=== PATIENT | male | born 1955 | race Two or more races ===

== ENCOUNTER 2020-02-15 07:20 | Inpatient (IN) | payer MEDICARE, OTHER ==
[~2020-02-15] VITALS: Ht 172.7 cm; Wt 87.5 kg
[2020-02-15 10:06] VITALS: BP 111/52
[2020-02-15 12:00] VITALS: BP 103/60
[2020-02-15] MEDS: D5 1/2NS w/KCl 20mEq 1,000 ML IV SCH (12:45)
--- NOTE | 2020-02-15 13:47 | Cardiology Report ---
APPROVED REPORT EXAM: Two-dimensional and M-mode echocardiogram with Doppler and color Doppler. INDICATION Syncope M-Mode DIMENSIONS IVSd0.8 (0.7-1.1cm)Left Atrium (MM)3.4 (1.6-4.0cm) LVDd4.1 (3.5-5.6cm)Aortic Root2.9 (2.0-3.7cm) PWd0.8 (0.7-1.1cm)Aortic Cusp Exc.1.9 (1.5-2.0cm) IVSs1.4 cmEPSS0.5 (>1.0cm) LVDs2.4 (2.5-4.0cm) PWs1.2 cm <Conclusion> Normal left ventricular chamber size, systolic function and wall motion. Left ventricular ejection fraction estimated to be 65 %. Anterior Echo-free space, may be due to pericardial fat or effusion. All other cardiac chamber sizes are within normal limits. Focal aortic valve sclerosis with adequate cusp excursion. Thickened mitral valve leaflets with normal excursion. Mitral annulus and aortic root calcification. Pulmonic valve not well visualized. Normal tricuspid valve structure. IVC are not obtainable. A color flow and spectral Doppler study was performed and revealed: No aortic regurgitation. Trace mitral regurgitation. Mitral diastolic velocities suggest reduced left ventricular relaxation c/w mild diastolic dysfunction (Grade I). Trace tricuspid regurgitation. Tricuspid systolic velocities suggests peak right ventricular systolic pressure of 16 mmHg.
[2020-02-15] MEDS: Tylenol #3 tab (300mg/30mg) ORAL PRN ×2 (14:03→22:48)
--- NOTE | 2020-02-15 15:59 | History & Physical ---
History and Physical History & Physicial Dictated for Int Med-Dr Diaz no. [id number] Antoine Powell MD Feb 15, 2020 15:59
[2020-02-15 16:00] VITALS: BP 100/54
--- NOTE | 2020-02-15 17:30 | History and Physical Report ---
DATE OF ADMISSION: 02/15/2020 CHIEF COMPLAINT: The patient is a 64-year-old male, who presents with a chief complaint of syncopal episode. HISTORY OF PRESENT ILLNESS: The patient apparently was in his usual state of health. The patient states he has had a cough for a couple of days. The patient apparently got up this morning to go to the restroom. The patient states "I passed out." The patient initially presented to [facility]. A COVID-19 tests with positive. The patient is transferred to [facility] for insurance purposes. The patient is admitted with syncopal episode and COVID-19 positive. REVIEW OF SYSTEMS: CONSTITUTIONAL: The patient denies weight loss or weight gain. The patient denies fevers or chills. HEENT: The patient denies ear or throat pain. The patient denies headache. CARDIOVASCULAR: The patient denies palpitations or chest pain. CHEST: The patient complains of nonproductive cough for 2 days. The patient denies wheezes or shortness of breath. ABDOMINAL: The patient denies nausea, vomiting, diarrhea, or constipation. GENITOURINARY: The patient denies dysuria or increased frequency of urination. NEUROMUSCULAR: The patient denies seizures or generalized weakness. PAST MEDICAL HISTORY: Significant for hypertension. PAST SURGICAL HISTORY: The patient denies. CURRENT MEDICATIONS: Unknown antihypertensive medication. ALLERGIES: No known drug allergies. SOCIAL HISTORY: The patient is single. The patient denies tobacco or alcohol use. PHYSICAL EXAMINATION: VITAL SIGNS: Temperature 97.8, respirations 18, pulse 75, blood pressure hypotensive at 74/48, pulse ox 98% on room air. GENERAL: The patient is a well-developed, well-nourished male, in no apparent distress. HEENT: Eyes, pupils are equal and responsive to light and accommodation. Extraocular movements are intact. NECK: Supple without lymphadenopathy. CHEST: Lungs are clear to auscultation bilaterally without wheezes or rales. CARDIOVASCULAR: Regular rate. S1, S2 are normal without murmurs, rubs, or gallops. ABDOMEN: Soft, nontender, and nondistended. Positive bowel sounds. No evidence of hepatosplenomegaly. Currently no rebound or guarding. EXTREMITIES: Negative for clubbing, cyanosis, or edema. RECTAL/GENITALIA: Not performed. NEUROLOGIC: Cranial nerves II through XII are grossly intact without focal deficits. Motor strength is 5/5 bilaterally. Deep tendon reflexes are 2+, plantar. LABORATORY STUDIES: WBC 8.1, hemoglobin 13.1, hematocrit 40.6, platelets 175,000. Sodium 137, potassium 3.8, chloride 106, CO2 24, creatinine 1.22, BUN 10, creatinine 1.22, glucose 145. Chest x-ray was reported as no consolidation or infiltrates. COVID-19 test was reported as positive. ASSESSMENT: This is a 64-year-old male with: 1. Syncopal episode. 2. COVID-19 positive. 3. Hypertension. TREATMENT: 1. Syncopal episode. This may be secondary to hypotension upon arrival. The patient's blood pressure has normalized. Hypotension may be secondary to sepsis versus COVID-19 pneumonia. 2. COVID-19 positive. An infectious disease consultation has been obtained with Dr. Faith. The patient has been placed on intravenous Decadron. A pulmonary consultation has been obtained with Dr. Kavin Escobedo. 3. Hypertension. The patient is currently hypotensive. Antoine Powell M.D. DR: ISAEL JOB#: [id number] CC:
--- NOTE | 2020-02-15 17:58 | Consultation ---
History of Present Illness General Date patient seen: Feb 15, 2020 Present Illness HPI 64 y/o M with hx of HTN presented to ED on 02/15/20 with syncopal episode and couple day of cough. Patient initially seen at [facility] and tested positive for COVID19. Denied f/c, ANGUIANO, n/v/d, SOB. Allergies: Coded Allergies: No Known Allergies (Unverified , 02/15/20) Patient History Healthcare decision maker Resuscitation status Advanced Directive on File Patient History Narrative Pmhx: as above Shx: The patient is single. The patient denies tobacco or alcohol use. Fhmx: non contributory Review of Systems All Other Systems: negative except mentioned in HPI Physical Exam Physical Exam Narrative GENERAL: The patient is a well-developed, well-nourished male, in no apparent distress. HEENT: Eyes, pupils are equal and responsive to light and accommodation. Extraocular movements are intact. NECK: Supple without lymphadenopathy. CHEST: Lungs are clear to auscultation bilaterally without wheezes or rales. CARDIOVASCULAR: Regular rate. S1, S2 are normal without murmurs, rubs, or gallops. ABDOMEN: Soft, nontender, and nondistended. Positive bowel sounds. No evidence of hepatosplenomegaly. Currently no rebound or guarding. EXTREMITIES: Negative for clubbing, cyanosis, or edema. Last 24 Hour Vital Signs Date Time Temp Pulse Resp B/P (MAP) Pulse Ox O2 Delivery O2 Flow Rate FiO2 02/15/20 16:00 98.6 75 20 100/54 (69) 98 02/15/20 12:00 87 02/15/20 12:00 97.5 70 20 103/60 (74) 99 02/15/20 10:43 74 89 101 02/15/20 10:06 Nasal Cannula 2.0 02/15/20 10:06 97.5 70 18 111/52 (71) 95 Height (Feet): 5 Height (Inches): 8.00 Weight (Pounds): 193 Medications Current Medications Medications (Trade) Dose Ordered Sig/Jazzmine Route PRN Reason Start Time Stop Time Status Last Admin Dose Admin Acetaminophen (Tylenol) 650 mg Q6H PRN ORAL Mild Pain (Pain Scale 1-3) 02/15/20 11:15 03/16/20 11:14 Acetaminophen (Tylenol) 650 mg Q6H PRN ORAL Temp >100.5 02/15/20 11:15 03/16/20 11:14 Acetaminophen/ Codeine Phosphate (Tylenol #3) 1 tab Q6H PRN ORAL Pain Scale (6-10) 02/15/20 11:15 02/22/20 11:14 02/15/20 14:03 Aspirin (ASA) 81 mg DAILY NG 02/16/20 09:00 04/01/20 08:59 Atorvastatin Calcium (Lipitor) 10 mg BEDTIME ORAL 02/15/20 21:00 05/15/20 20:59 Dextrose/ Electrolytes 1,000 ml @ 75 mls/hr [id number] IV 02/15/20 12:45 02/16/20 12:44 02/15/20 12:45 Enoxaparin Sodium (Lovenox) 40 mg DAILY SUBQ 02/16/20 09:00 05/16/20 08:59 Ondansetron HCl (Zofran) 4 mg Q6H PRN IVP Nausea & Vomiting 02/15/20 11:15 03/16/20 11:14 Assessment/Plan Assessment/Plan: Abx: None Assessment: COVID19 +- at [facility]- currently at -02/14 COVID PCR + (at [facility]) Influenza PCR neg CXR: no infiltrates Afebrile No leukocytosis (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 Will continue to follow along with you. Discussed with NAKITA. Raquel Medina M.D. Feb 15, 2020 17:58
[2020-02-15 20:00] VITALS: BP 117/59
[2020-02-16] VITALS (7 sets, daily range): BP systolic 108–146; BP diastolic 54–77
[2020-02-16] MEDS: D5 1/2NS w/KCl 20mEq 1,000 ML IV SCH (02:51)
[2020-02-16 07:44] LABS: BASOPHILS % (AUTO) 0.6 % (0.0-2.0); EOSINOPHILS % (AUTO) 0.3 % (0.0-3.0); HEMATOCRIT 37.5 % (42.0-52.0); HEMOGLOBIN 13.1 G/DL (14.2-18.0); LYMPHOCYTES % (AUTO) 33.8 % (20.0-45.0); MEAN CORPUSCULAR VOLUME 90 FL (80-99); NEUTROPHILS % (AUTO) 54.4 % (45.0-75.0); PLATELET COUNT 151 K/UL (150-450); RED BLOOD COUNT 4.17 M/UL (4.70-6.10); RED CELL DISTRIBUTION WIDTH 13.7 % (11.6-14.8); WHITE BLOOD COUNT 6.2 K/UL (4.8-10.8)
[2020-02-16 08:25] LABS: ALANINE AMINOTRANSFERASE 32 U/L (12-78); ALBUMIN 3.1 G/DL (3.4-5.0); ALBUMIN/GLOBULIN RATIO 0.9 (1.0-2.7); ALKALINE PHOSPHATASE 67 U/L (46-116); ANION GAP 4 mmol/L (5-15); ASPARTATE AMINO TRANSFERASE 28 U/L (15-37); BILIRUBIN,TOTAL 0.5 MG/DL (0.2-1.0); BLOOD UREA NITROGEN 12 mg/dL (7-18); CALCIUM 7.9 MG/DL (8.5-10.1); CARBON DIOXIDE 28 MMOL/L (21-32); CHLORIDE 104 MMOL/L (98-107); CREATININE 0.9 MG/DL (0.55-1.30); PHOSPHORUS 2.8 MG/DL (2.5-4.9); POTASSIUM 3.6 MMOL/L (3.5-5.1); SODIUM 136 MMOL/L (136-145)
[2020-02-16] MEDS: Aspirin Baby 81mg NG SCH (08:36)
[2020-02-16] MEDS: Enoxaparin 40mg Inj SUBQ SCH (08:38)
[2020-02-16] MEDS ORDERED: Albuterol 90mcg Inhaler 8gm INH PRN (11:00)
--- NOTE | 2020-02-16 11:00 | Consultation ---
History of Present Illness General Date patient seen: Feb 16, 2020 Time patient seen: 09:00 Chief Complaint: SOB, + COVID Referring physician: Dr Diaz Reason for Consultation: COVID 19 infection, SOB Present Illness HPI 64 years old male with PMH of HTN, passed out in the bathroom patient. Patient initially presented to [facility] ED . Covid 19 was positive . Chest x-ray revealed no acute cardiopulmonary pathology Patient subsequently was transferred to [facility] for further management. Laboratory work-up revealed no leukocytosis, stable hemoglobin and hematocrit. Troponin negative. Stable electrolytes and renal parameters Patient admitted for syncopal episode , COVID-19 infection. Pulmonary consult was requested to assist in management of this patient. This morning he denies shortness of breath. Pulse oximetry stable on room air. No chest pain, no palpitation, no blackouts. Allergies: Coded Allergies: No Known Allergies (Unverified , 02/15/20) Patient History Healthcare decision maker Resuscitation status full code Advanced Directive on File Past Medical/Surgical History Past Medical/Surgical History: (1) HTN (hypertension) Review of Systems Constitutional: Reports: weakness Eye: Reports: no symptoms ENT: Reports: no symptoms Respiratory: Reports: no symptoms Cardiovascular: Reports: no symptoms Gastrointestinal: Reports: no symptoms Genitourinary: Reports: no symptoms Musculoskeletal: Reports: no symptoms Skin: Reports: no symptoms Psychiatric: Reports: no symptoms Neurological: Reports: see HPI Endocrine: Reports: no symptoms Physical Exam General Appearance: WD/WN - obese, alert Lines, tubes and drains: peripheral HEENT: normocephalic, anicteric, mucous membranes moist, PERRL Neck: supple Respiratory/Chest: chest wall non-tender, lungs clear, no respiratory distress, no accessory muscle use Cardiovascular/Chest: normal rate, regular rhythm Abdomen: normal bowel sounds, non tender, soft - obese Extremities: normal range of motion, non-tender, no calf tenderness, normal capillary refill Skin Exam: warm/dry, no diaphoresis 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6 75 20 100/54 (69) 98 02/15/20 12:00 87 02/15/20 12:00 97.5 70 20 103/60 (74) 99 Intake and Output 02/15/20 02/16/20 19:00 07:00 Intake Total 635 ml 675 ml Output Total 450 ml 1500 ml Balance 185 ml -825 ml Intake Oral 560 ml IV Total 75 ml 675 ml Output Urine Total 450 ml 1500 ml # Voids 1 Laboratory Tests Test 02/16/20 03:40 White Blood Count 6.2 K/UL (4.8-10.8) Red Blood Count 4.17 M/UL (4.70-6.10) L Hemoglobin 13.1 G/DL (14.2-18.0) L Hematocrit 37.5 % (42.0-52.0) L Mean Corpuscular Volume 90 FL (80-99) Mean Corpuscular Hemoglobin 31.5 PG (27.0-31.0) H Mean Corpuscular Hemoglobin Concent 35.0 G/DL (32.0-36.0) Red Cell Distribution Width 13.7 % (11.6-14.8) Platelet Count 151 K/UL (150-450) Mean Platelet Volume 7.2 FL (6.5-10.1) Neutrophils (%) (Auto) 54.4 % (45.0-75.0) Lymphocytes (%) (Auto) 33.8 % (20.0-45.0) Monocytes (%) (Auto) 11.0 % (1.0-10.0) H Eosinophils (%) (Auto) 0.3 % (0.0-3.0) Basophils (%) (Auto) 0.6 % (0.0-2.0) Sodium Level 136 MMOL/L (136-145) Potassium Level 3.6 MMOL/L (3.5-5.1) Chloride Level 104 MMOL/L (98-107) Carbon Dioxide Level 28 MMOL/L (21-32) Anion Gap 4 mmol/L (5-15) L Blood Urea Nitrogen 12 mg/dL (7-18) Creatinine 0.9 MG/DL (0.55-1.30) Estimat Glomerular Filtration Rate > 60 mL/min (>60) Glucose Level 100 MG/DL (74-106) Calcium Level 7.9 MG/DL (8.5-10.1) L Phosphorus Level 2.8 MG/DL (2.5-4.9) Magnesium Level 1.9 MG/DL (1.8-2.4) Total Bilirubin 0.5 MG/DL (0.2-1.0) Aspartate Amino Transf (AST/SGOT) 28 U/L (15-37) Alanine Aminotransferase (ALT/SGPT) 32 U/L (12-78) Alkaline Phosphatase 67 U/L (46-116) Troponin I 0.006 ng/mL (0.000-0.056) Total Protein 6.4 G/DL (6.4-8.2) Albumin 3.1 G/DL (3.4-5.0) L Globulin 3.3 g/dL Albumin/Globulin Ratio 0.9 (1.0-2.7) L Height (Feet): 5 Height (Inches): 8.00 Weight (Pounds): 193 Medications Current Medications Medications (Trade) Dose Ordered Sig/Jazzmine Route PRN Reason Start Time Stop Time Status Last Admin Dose Admin Acetaminophen (Tylenol) 650 mg Q6H PRN ORAL Temp >100.5 02/15/20 11:15 03/16/20 11:14 02/16/20 08:37 Acetaminophen (Tylenol) 650 mg Q6H PRN ORAL Mild Pain (Pain Scale 1-3) 02/15/20 11:15 03/16/20 11:14 Acetaminophen/ Codeine Phosphate (Tylenol #3) 1 tab Q6H PRN ORAL Pain Scale (6-10) 02/15/20 11:15 02/22/20 11:14 02/15/20 22:48 Aspirin (ASA) 81 mg DAILY NG 02/16/20 09:00 04/01/20 08:59 02/16/20 08:36 Atorvastatin Calcium (Lipitor) 10 mg BEDTIME ORAL 02/15/20 21:00 05/15/20 20:59 02/15/20 21:57 Dextrose/ Electrolytes 1,000 ml @ 75 mls/hr [id number] IV 02/15/20 12:45 02/16/20 12:44 02/16/20 02:51 Enoxaparin Sodium (Lovenox) 40 mg DAILY SUBQ 02/16/20 09:00 05/16/20 08:59 02/16/20 08:38 Ondansetron HCl (Zofran) 4 mg Q6H PRN IVP Nausea & Vomiting 02/15/20 11:15 03/16/20 11:14 Assessment/Plan Assessment/Plan: ASSESSMENT COVUD 19 infection Syncope HTN Obesity PLAN OF CARE tele isolation IVF, BP stable CXR clear , pulse ox stable on RA hold off on steroids and abx O2 prn titrate to keep sat > 92% Albuterol MDI prn a/c with Lovenox/ prophylactic dose fup with CXR fup with inflammatory markers in am to access risk of cytokine storm add vit C and Zinc ECHO with pEF Carotid pending continue IVF for now , closely monitor BP- stable orthostatic VS q shift supportive care continue case discussed and evaluated by supervising physician Idalia Jeong NP Feb 16, 2020 11:00
--- NOTE | 2020-02-16 11:10 | Diagnostic Imaging Report ---
EXAM: XR Chest, 1 View CLINICAL HISTORY: COUGH TECHNIQUE: Frontal view of the chest. COMPARISON: No relevant prior studies available. FINDINGS: Lungs: Mildly increased interstitial markings. The lungs are otherwise clear without focal consolidation. Pleural space: Unremarkable. The costophrenic angles are sharp. No visible pneumothorax. Heart: Unremarkable. No cardiomegaly. Mediastinum: Unremarkable. Bones/joints: Unremarkable. IMPRESSION: Mildly increased interstitial markings. This is nonspecific and may represent a mild bronchitis or pneumonitis. No focal consolidation.
[2020-02-16] MEDS: Tylenol #3 tab (300mg/30mg) ORAL PRN ×2 (11:34→20:45)
--- NOTE | 2020-02-16 13:19 | Internal Med Progress Note ---
Subjective Date of Service: Feb 16, 2020 Physician Name Antoine Powell Attending Physician Mckay Diaz MD Current Medications Medications (Trade) Dose Ordered Sig/Jazzmine Route PRN Reason Start Time Stop Time Status Last Admin Dose Admin Acetaminophen (Tylenol) 650 mg Q6H PRN ORAL Temp >100.5 02/15/20 11:15 03/16/20 11:14 02/16/20 08:37 Acetaminophen (Tylenol) 650 mg Q6H PRN ORAL Mild Pain (Pain Scale 1-3) 02/15/20 11:15 03/16/20 11:14 Acetaminophen/ Codeine Phosphate (Tylenol #3) 1 tab Q6H PRN ORAL Pain Scale (6-10) 02/15/20 11:15 02/22/20 11:14 02/16/20 11:34 Albuterol Sulfate (Proventil MDI) 2 puff Q4H PRN INH Shortness of Breath 02/16/20 11:00 05/16/20 10:59 Ascorbic Acid (Vitamin C) 500 mg TWICE A DAY ORAL 02/16/20 18:00 03/17/20 17:59 Aspirin (ASA) 81 mg DAILY NG 02/16/20 09:00 04/01/20 08:59 02/16/20 08:36 Atorvastatin Calcium (Lipitor) 10 mg BEDTIME ORAL 02/15/20 21:00 05/15/20 20:59 02/15/20 21:57 Enoxaparin Sodium (Lovenox) 40 mg DAILY SUBQ 02/16/20 09:00 05/16/20 08:59 02/16/20 08:38 Ondansetron HCl (Zofran) 4 mg Q6H PRN IVP Nausea & Vomiting 02/15/20 11:15 03/16/20 11:14 Zinc Sulfate (Zinc Sulfate) 220 mg DAILY ORAL 02/17/20 09:00 05/17/20 08:59 Allergies: Coded Allergies: No Known Allergies (Unverified , 02/15/20) ROS Limited/Unobtainable: No Constitutional: Reports: no symptoms HEENT: Reports: no symptoms Cardiovascular: Reports: no symptoms Respiratory: Reports: cough, SOB with excertion Gastrointestinal/Abdominal: Reports: no symptoms Genitourinary: Reports: no symptoms Neurologic/Psychiatric: Reports: no symptoms Subjective 64 YO M admitted with syncope. Now respiratory failure and COVID 19 pneumonia. Cover for Int Cas - Dr Diaz Objective Last Vital Signs Date Time Temp Pulse Resp B/P (MAP) Pulse Ox O2 Delivery O2 Flow Rate FiO2 02/16/20 12:00 69 02/16/20 12:00 99.0 20 108/68 (81) 99 02/16/20 09:00 Room Air 02/15/20 10:06 2.0 Laboratory Tests Test 02/16/20 03:40 White Blood Count 6.2 K/UL (4.8-10.8) Red Blood Count 4.17 M/UL (4.70-6.10) L Hemoglobin 13.1 G/DL (14.2-18.0) L Hematocrit 37.5 % (42.0-52.0) L Mean Corpuscular Volume 90 FL (80-99) Mean Corpuscular Hemoglobin 31.5 PG (27.0-31.0) H Mean Corpuscular Hemoglobin Concent 35.0 G/DL (32.0-36.0) Red Cell Distribution Width 13.7 % (11.6-14.8) Platelet Count 151 K/UL (150-450) Mean Platelet Volume 7.2 FL (6.5-10.1) Neutrophils (%) (Auto) 54.4 % (45.0-75.0) Lymphocytes (%) (Auto) 33.8 % (20.0-45.0) Monocytes (%) (Auto) 11.0 % (1.0-10.0) H Eosinophils (%) (Auto) 0.3 % (0.0-3.0) Basophils (%) (Auto) 0.6 % (0.0-2.0) Sodium Level 136 MMOL/L (136-145) Potassium Level 3.6 MMOL/L (3.5-5.1) Chloride Level 104 MMOL/L (98-107) Carbon Dioxide Level 28 MMOL/L (21-32) Anion Gap 4 mmol/L (5-15) L Blood Urea Nitrogen 12 mg/dL (7-18) Creatinine 0.9 MG/DL (0.55-1.30) Estimat Glomerular Filtration Rate > 60 mL/min (>60) Glucose Level 100 MG/DL (74-106) Calcium Level 7.9 MG/DL (8.5-10.1) L Phosphorus Level 2.8 MG/DL (2.5-4.9) Magnesium Level 1.9 MG/DL (1.8-2.4) Total Bilirubin 0.5 MG/DL (0.2-1.0) Aspartate Amino Transf (AST/SGOT) 28 U/L (15-37) Alanine Aminotransferase (ALT/SGPT) 32 U/L (12-78) Alkaline Phosphatase 67 U/L (46-116) Troponin I 0.006 ng/mL (0.000-0.056) Total Protein 6.4 G/DL (6.4-8.2) Albumin 3.1 G/DL (3.4-5.0) L Globulin 3.3 g/dL Albumin/Globulin Ratio 0.9 (1.0-2.7) L Intake and Output 02/15/20 02/16/20 19:00 07:00 Intake Total 635 ml 675 ml Output Total 450 ml 1500 ml Balance 185 ml -825 ml Intake Oral 560 ml IV Total 75 ml 675 ml Output Urine Total 450 ml 1500 ml # Voids 1 Objective PHYSICAL EXAMINATION: GENERAL: The patient is a well-developed, well-nourished male, in no apparent distress. HEENT: Eyes, pupils are equal and responsive to light and accommodation. Extraocular movements are intact. NECK: Supple without lymphadenopathy. CHEST: Lungs are clear to auscultation bilaterally without wheezes or rales. CARDIOVASCULAR: Regular rate. S1, S2 are normal without murmurs, rubs, or gallops. ABDOMEN: Soft, nontender, and nondistended. Positive bowel sounds. No evidence of hepatosplenomegaly. Currently no rebound or guarding. EXTREMITIES: Negative for clubbing, cyanosis, or edema. RECTAL/GENITALIA: Not performed. NEUROLOGIC: Cranial nerves II through XII are grossly intact without focal deficits. Motor strength is 5/5 bilaterally. Deep tendon reflexes are 2+ bilat Assessment/Plan Assessment/Plan ASSESSMENT: This is a 64-year-old male with: 1. Syncopal episode. 2. COVID-19 positive. 3. Hypertension. TREATMENT: 1. Syncopal episode. This may be secondary to hypotension upon arrival. The patient's blood pressure has normalized. Hypotension may be secondary to sepsis versus COVID-19 pneumonia. 2. COVID-19 positive. An infectious disease consultation has been obtained with Dr. Faith. The patient has been placed on intravenous Decadron. A pulmonary consultation has been obtained with Dr. Kavin Escobedo. 3. Hypertension. The patient is currently hypotensive. Antoine Powell MD Feb 16, 2020 13:19
[2020-02-16] MEDS: guaiFENesin 100mg/5ml Liq ud ORAL PRN ×2 (16:01→22:07)
[2020-02-16] MEDS: Ascorbic Acid 500mg tab ORAL SCH (17:52)
[2020-02-17] VITALS (7 sets, daily range): BP systolic 114–130; BP diastolic 64–79
[2020-02-17 07:37] LABS: BASOPHILS % (AUTO) 0.3 % (0.0-2.0); EOSINOPHILS % (AUTO) 0.1 % (0.0-3.0); HEMATOCRIT 41.2 % (42.0-52.0); HEMOGLOBIN 14.2 G/DL (14.2-18.0); LYMPHOCYTES % (AUTO) 24.1 % (20.0-45.0); MEAN CORPUSCULAR VOLUME 89 FL (80-99); MONOCYTES % (AUTO) 7.7 % (1.0-10.0); NEUTROPHILS % (AUTO) 67.8 % (45.0-75.0); PLATELET COUNT 163 K/UL (150-450); RED BLOOD COUNT 4.63 M/UL (4.70-6.10); RED CELL DISTRIBUTION WIDTH 13.1 % (11.6-14.8); WHITE BLOOD COUNT 8.1 K/UL (4.8-10.8)
[2020-02-17 07:58] LABS: ANION GAP 7 mmol/L (5-15); BLOOD UREA NITROGEN 13 mg/dL (7-18); CALCIUM 8.5 MG/DL (8.5-10.1); CARBON DIOXIDE 28 MMOL/L (21-32); CHLORIDE 99 MMOL/L (98-107); CREATININE 0.9 MG/DL (0.55-1.30); FERRITIN 215 NG/ML (8-388); LACTATE DEHYDROGENASE 220 U/L (81-234); POTASSIUM 3.6 MMOL/L (3.5-5.1); SODIUM 134 MMOL/L (136-145)
--- NOTE | 2020-02-17 08:26 | Consultation ---
History of Present Illness General Date patient seen: Feb 17, 2020 Time patient seen: 12:42 Chief Complaint: Syncope Referring physician: Dr Diaz Reason for Consultation: COVID 19 infection, SOB Present Illness HPI 64yo M who p/w syncopal episode. Pt reports cough for a couple of days, then in the morning got out of bed to use restroom and passed out, prompting presentation to [facility] ER. COVID testing there was positive, transferred to [facility] for insurance reasons. ID c/s given COVID+. Pt has had mild fever to 100.5 in house, normal WBC and is stable on RA. Reports lightheadedness when gets up, but otherwise doing well. Breathing stable. No allergies to abx. Allergies: Coded Allergies: No Known Allergies (Unverified , 02/15/20) Patient History Healthcare decision maker Resuscitation status Advanced Directive on File Review of Systems ROS Narrative 10-point ROS neg except as noted in HPI Physical Exam Physical Exam Narrative Gen: NAD HEENT: NCAT Pulm: BL chest rise Abd: Non-distended Ext: No c/c/e Skin: No visible rashes Neuro: Awake Last 24 Hour Vital Signs Date Time Temp Pulse Resp B/P (MAP) Pulse Ox O2 Delivery O2 Flow Rate FiO2 02/17/20 06:00 97.9 93 18 130/73 (92) 95 02/17/20 04:00 93 91 74 02/17/20 04:00 90 02/17/20 04:00 97.9 93 18 130/73 (92) 95 02/17/20 00:00 82 02/17/20 00:00 97.9 90 18 123/73 (90) 95 02/16/20 21:15 99.1 02/16/20 21:00 Room Air 02/16/20 20:00 88 02/16/20 20:00 99.0 85 20 146/77 (100) 96 02/16/20 16:00 73 02/16/20 16:00 99.1 85 20 114/67 (83) 99 02/16/20 12:00 69 02/16/20 12:00 99.0 71 20 108/68 (81) 99 02/16/20 10:45 71 79 92 02/16/20 09:07 99.5 02/16/20 09:00 Room Air Intake and Output 02/16/20 02/17/20 18:59 06:59 Intake Total 820 ml 400 ml Output Total 1500 ml 400 ml Balance -680 ml 0 ml Intake Oral 820 ml 400 ml Output Urine Total 1500 ml 400 ml # Voids 1 Laboratory Tests Test 02/17/20 04:45 White Blood Count 8.1 K/UL (4.8-10.8) Red Blood Count 4.63 M/UL (4.70-6.10) L Hemoglobin 14.2 G/DL (14.2-18.0) Hematocrit 41.2 % (42.0-52.0) L Mean Corpuscular Volume 89 FL (80-99) Mean Corpuscular Hemoglobin 30.7 PG (27.0-31.0) Mean Corpuscular Hemoglobin Concent 34.5 G/DL (32.0-36.0) Red Cell Distribution Width 13.1 % (11.6-14.8) Platelet Count 163 K/UL (150-450) Mean Platelet Volume 6.9 FL (6.5-10.1) Neutrophils (%) (Auto) 67.8 % (45.0-75.0) Lymphocytes (%) (Auto) 24.1 % (20.0-45.0) Monocytes (%) (Auto) 7.7 % (1.0-10.0) Eosinophils (%) (Auto) 0.1 % (0.0-3.0) Basophils (%) (Auto) 0.3 % (0.0-2.0) D-Dimer 0.68 mg/L FEU (0.00-0.49) H Sodium Level 134 MMOL/L (136-145) L Potassium Level 3.6 MMOL/L (3.5-5.1) Chloride Level 99 MMOL/L (98-107) Carbon Dioxide Level 28 MMOL/L (21-32) Anion Gap 7 mmol/L (5-15) Blood Urea Nitrogen 13 mg/dL (7-18) Creatinine 0.9 MG/DL (0.55-1.30) Estimat Glomerular Filtration Rate > 60 mL/min (>60) Glucose Level 105 MG/DL (74-106) Calcium Level 8.5 MG/DL (8.5-10.1) Ferritin 215 NG/ML (8-388) Lactate Dehydrogenase 220 U/L (81-234) C-Reactive Protein, Quantitative 1.8 mg/dL (0.00-0.90) H Height (Feet): 5 Height (Inches): 8.00 Weight (Pounds): 193 Medications Current Medications Medications (Trade) Dose Ordered Sig/Jazzmine Route PRN Reason Start Time Stop Time Status Last Admin Dose Admin Acetaminophen (Tylenol) 650 mg Q6H PRN ORAL Temp >100.5 02/15/20 11:15 03/16/20 11:14 02/16/20 08:37 Acetaminophen (Tylenol) 650 mg Q6H PRN ORAL Mild Pain (Pain Scale 1-3) 02/15/20 11:15 03/16/20 11:14 Acetaminophen/ Codeine Phosphate (Tylenol #3) 1 tab Q6H PRN ORAL Pain Scale (6-10) 02/15/20 11:15 02/22/20 11:14 02/16/20 20:45 Albuterol Sulfate (Proventil MDI) 2 puff Q4H PRN INH Shortness of Breath 02/16/20 11:00 05/16/20 10:59 Ascorbic Acid (Vitamin C) 500 mg TWICE A DAY ORAL 02/16/20 18:00 03/17/20 17:59 02/16/20 17:52 Aspirin (ASA) 81 mg DAILY NG 02/16/20 09:00 04/01/20 08:59 02/16/20 08:36 Atorvastatin Calcium (Lipitor) 10 mg BEDTIME ORAL 02/15/20 21:00 05/15/20 20:59 02/16/20 20:44 Enoxaparin Sodium (Lovenox) 40 mg DAILY SUBQ 02/16/20 09:00 05/16/20 08:59 02/16/20 08:38 Guaifenesin (Robitussin) 100 mg Q6H PRN ORAL For Cough 02/16/20 16:00 05/16/20 15:59 02/16/20 22:07 Ondansetron HCl (Zofran) 4 mg Q6H PRN IVP Nausea & Vomiting 02/15/20 11:15 03/16/20 11:14 Zinc Sulfate (Zinc Sulfate) 220 mg DAILY ORAL 02/17/20 09:00 05/17/20 08:59 Assessment/Plan Assessment/Plan: 64yo M with: Fever to 100.5 Normal WBC COVID+ Doing well on RA Syncopal episode 02/14 CTH at OSH: Neg for acute process 02/15 CXR: Mildly increased interstitial markings. This is nonspecific and may represent a mild bronchitis or pneumonitis. No focal consolidation. Plan: Cont to monitor off abx, off antivirals and off steroids given pt w/ COVID but relatively asymptomatic from resp standpoint, doing well on RA Check ambulatory sat, if >94% w/ ambulation, then OK to d/c home to home isolation from ID standpoint Trend resp status closely Monitor CBC/CMP Monitor temp curve, hemodynamics Monitor resp status D/w RN Thank you for this consult. [facility] will continue to follow. Shraddha Foley M.D. Feb 17, 2020 08:26
[2020-02-17] MEDS: Enoxaparin 40mg Inj SUBQ SCH (09:00)
[2020-02-17] MEDS: Ascorbic Acid 500mg tab ORAL SCH ×2 (09:00→17:53)
[2020-02-17] MEDS: Zinc Sulfate 220mg ORAL SCH (09:00)
[2020-02-17] MEDS: Aspirin Baby 81mg NG SCH (09:00)
--- NOTE | 2020-02-17 09:08 | Pulmonology Progress Note ---
Subjective ROS Limited/Unobtainable: No Constitutional: Reports: no symptoms HEENT: Repors: no symptoms Respiratory: Reports: no symptoms Allergies: Coded Allergies: No Known Allergies (Unverified , 02/15/20) Objective Last 24 Hour Vital Signs Date Time Temp Pulse Resp B/P (MAP) Pulse Ox O2 Delivery O2 Flow Rate FiO2 02/17/20 06:00 97.9 93 18 130/73 (92) 95 02/17/20 04:00 93 91 74 02/17/20 04:00 90 02/17/20 04:00 97.9 93 18 130/73 (92) 95 02/17/20 00:00 82 02/17/20 00:00 97.9 90 18 123/73 (90) 95 02/16/20 21:15 99.1 02/16/20 21:00 Room Air 02/16/20 20:00 88 02/16/20 20:00 99.0 85 20 146/77 (100) 96 02/16/20 16:00 73 02/16/20 16:00 99.1 85 20 114/67 (83) 99 02/16/20 12:00 69 02/16/20 12:00 99.0 71 20 108/68 (81) 99 02/16/20 10:45 71 79 92 02/16/20 09:07 99.5 Intake and Output 02/16/20 02/17/20 19:00 07:00 Intake Total 820 ml 400 ml Output Total 1500 ml 400 ml Balance -680 ml 0 ml Intake Oral 820 ml 400 ml Output Urine Total 1500 ml 400 ml # Voids 1 General Appearance: WD/WN HEENT: normocephalic, atraumatic Respiratory: chest wall non-tender, lungs clear Cardiovascular: normal peripheral pulses, normal rate Abdomen: normal bowel sounds, soft, non tender Genitourinary: normal external genitalia 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 Laboratory Tests 02/17/20 04:45: White Blood Count 8.1, Red Blood Count 4.63L, Hemoglobin 14.2, Hematocrit 41.2L, Mean Corpuscular Volume 89, Mean Corpuscular Hemoglobin 30.7, Mean Corpuscular Hemoglobin Concent 34.5, Red Cell Distribution Width 13.1, Platelet Count 163, Mean Platelet Volume 6.9, Neutrophils (%) (Auto) 67.8, Lymphocytes (%) (Auto) 24.1, Monocytes (%) (Auto) 7.7, Eosinophils (%) (Auto) 0.1, Basophils (%) (Auto) 0.3, D-Dimer 0.68H, Sodium Level 134L, Potassium Level 3.6, Chloride Level 99, Carbon Dioxide Level 28, Anion Gap 7, Blood Urea Nitrogen 13, Creatinine 0.9, Estimat Glomerular Filtration Rate > 60, Glucose Level 105, Calcium Level 8.5, Ferritin 215, Lactate Dehydrogenase 220, C-Reactive Protein, Quantitative 1.8H Current Medications Medications (Trade) Dose Ordered Sig/Jazzmine Route PRN Reason Start Time Stop Time Status Last Admin Dose Admin Acetaminophen (Tylenol) 650 mg Q6H PRN ORAL Temp >100.5 02/15/20 11:15 03/16/20 11:14 02/16/20 08:37 Acetaminophen (Tylenol) 650 mg Q6H PRN ORAL Mild Pain (Pain Scale 1-3) 02/15/20 11:15 03/16/20 11:14 Acetaminophen/ Codeine Phosphate (Tylenol #3) 1 tab Q6H PRN ORAL Pain Scale (6-10) 02/15/20 11:15 02/22/20 11:14 02/16/20 20:45 Albuterol Sulfate (Proventil MDI) 2 puff Q4H PRN INH Shortness of Breath 02/16/20 11:00 05/16/20 10:59 Ascorbic Acid (Vitamin C) 500 mg TWICE A DAY ORAL 02/16/20 18:00 03/17/20 17:59 02/16/20 17:52 Aspirin (ASA) 81 mg DAILY NG 02/16/20 09:00 04/01/20 08:59 02/16/20 08:36 Atorvastatin Calcium (Lipitor) 10 mg BEDTIME ORAL 02/15/20 21:00 05/15/20 20:59 02/16/20 20:44 Enoxaparin Sodium (Lovenox) 40 mg DAILY SUBQ 02/16/20 09:00 05/16/20 08:59 02/16/20 08:38 Guaifenesin (Robitussin) 100 mg Q6H PRN ORAL For Cough 02/16/20 16:00 05/16/20 15:59 02/16/20 22:07 Ondansetron HCl (Zofran) 4 mg Q6H PRN IVP Nausea & Vomiting 02/15/20 11:15 03/16/20 11:14 Zinc Sulfate (Zinc Sulfate) 220 mg DAILY ORAL 02/17/20 09:00 05/17/20 08:59 Assessment/Plan Problems: (1) Syncope (2) COVID-19 (3) HTN (hypertension) Assessment/Plan no new complains Echo reviewed: EF is 65% BP controlled repeat CRP, ID evaluation pending Kavin Escobedo MD Feb 17, 2020 09:08
--- NOTE | 2020-02-17 12:52 | Internal Med Progress Note ---
Subjective Date of Service: Feb 17, 2020 Physician Name Antoine Powell Attending Physician Mckay Diaz MD Current Medications Medications (Trade) Dose Ordered Sig/Jazzmine Route PRN Reason Start Time Stop Time Status Last Admin Dose Admin Acetaminophen (Tylenol) 650 mg Q6H PRN ORAL Temp >100.5 02/15/20 11:15 03/16/20 11:14 02/16/20 08:37 Acetaminophen (Tylenol) 650 mg Q6H PRN ORAL Mild Pain (Pain Scale 1-3) 02/15/20 11:15 03/16/20 11:14 02/17/20 09:51 Acetaminophen/ Codeine Phosphate (Tylenol #3) 1 tab Q6H PRN ORAL Pain Scale (6-10) 02/15/20 11:15 02/22/20 11:14 02/16/20 20:45 Albuterol Sulfate (Proventil MDI) 2 puff Q4H PRN INH Shortness of Breath 02/16/20 11:00 05/16/20 10:59 Ascorbic Acid (Vitamin C) 500 mg TWICE A DAY ORAL 02/16/20 18:00 03/17/20 17:59 02/17/20 09:00 Aspirin (ASA) 81 mg DAILY NG 02/16/20 09:00 04/01/20 08:59 02/17/20 09:00 Atorvastatin Calcium (Lipitor) 10 mg BEDTIME ORAL 02/15/20 21:00 05/15/20 20:59 02/16/20 20:44 Enoxaparin Sodium (Lovenox) 40 mg DAILY SUBQ 02/16/20 09:00 05/16/20 08:59 02/17/20 09:00 Guaifenesin (Robitussin) 100 mg Q6H PRN ORAL For Cough 02/16/20 16:00 05/16/20 15:59 02/16/20 22:07 Ondansetron HCl (Zofran) 4 mg Q6H PRN IVP Nausea & Vomiting 02/15/20 11:15 03/16/20 11:14 Zinc Sulfate (Zinc Sulfate) 220 mg DAILY ORAL 02/17/20 09:00 05/17/20 08:59 02/17/20 09:00 Allergies: Coded Allergies: No Known Allergies (Unverified , 02/15/20) ROS Limited/Unobtainable: No Constitutional: Reports: no symptoms HEENT: Reports: no symptoms Cardiovascular: Reports: no symptoms Respiratory: Reports: shortness of breath Gastrointestinal/Abdominal: Reports: no symptoms Genitourinary: Reports: no symptoms Neurologic/Psychiatric: Reports: no symptoms Subjective 64 YO M admitted with syncope. Now respiratory failure and COVID 19 pneumonia. Cover for Int Cas - Dr Diaz Objective Last Vital Signs Date Time Temp Pulse Resp B/P (MAP) Pulse Ox O2 Delivery O2 Flow Rate FiO2 02/17/20 12:00 78 02/17/20 11:54 98.9 16 121/69 (86) 98 02/17/20 09:00 Room Air 02/15/20 10:06 2.0 Laboratory Tests Test 02/17/20 04:45 White Blood Count 8.1 K/UL (4.8-10.8) Red Blood Count 4.63 M/UL (4.70-6.10) L Hemoglobin 14.2 G/DL (14.2-18.0) Hematocrit 41.2 % (42.0-52.0) L Mean Corpuscular Volume 89 FL (80-99) Mean Corpuscular Hemoglobin 30.7 PG (27.0-31.0) Mean Corpuscular Hemoglobin Concent 34.5 G/DL (32.0-36.0) Red Cell Distribution Width 13.1 % (11.6-14.8) Platelet Count 163 K/UL (150-450) Mean Platelet Volume 6.9 FL (6.5-10.1) Neutrophils (%) (Auto) 67.8 % (45.0-75.0) Lymphocytes (%) (Auto) 24.1 % (20.0-45.0) Monocytes (%) (Auto) 7.7 % (1.0-10.0) Eosinophils (%) (Auto) 0.1 % (0.0-3.0) Basophils (%) (Auto) 0.3 % (0.0-2.0) D-Dimer 0.68 mg/L FEU (0.00-0.49) H Sodium Level 134 MMOL/L (136-145) L Potassium Level 3.6 MMOL/L (3.5-5.1) Chloride Level 99 MMOL/L (98-107) Carbon Dioxide Level 28 MMOL/L (21-32) Anion Gap 7 mmol/L (5-15) Blood Urea Nitrogen 13 mg/dL (7-18) Creatinine 0.9 MG/DL (0.55-1.30) Estimat Glomerular Filtration Rate > 60 mL/min (>60) Glucose Level 105 MG/DL (74-106) Calcium Level 8.5 MG/DL (8.5-10.1) Ferritin 215 NG/ML (8-388) Lactate Dehydrogenase 220 U/L (81-234) C-Reactive Protein, Quantitative 1.8 mg/dL (0.00-0.90) H Intake and Output 02/16/20 02/17/20 19:00 07:00 Intake Total 820 ml 400 ml Output Total 1500 ml 400 ml Balance -680 ml 0 ml Intake Oral 820 ml 400 ml Output Urine Total 1500 ml 400 ml # Voids 1 Objective PHYSICAL EXAMINATION: GENERAL: The patient is a well-developed, well-nourished male, in no apparent distress. HEENT: Eyes, pupils are equal and responsive to light and accommodation. Extraocular movements are intact. NECK: Supple without lymphadenopathy. CHEST: Lungs are clear to auscultation bilaterally without wheezes or rales. CARDIOVASCULAR: Regular rate. S1, S2 are normal without murmurs, rubs, or gallops. ABDOMEN: Soft, nontender, and nondistended. Positive bowel sounds. No evidence of hepatosplenomegaly. Currently no rebound or guarding. EXTREMITIES: Negative for clubbing, cyanosis, or edema. RECTAL/GENITALIA: Not performed. NEUROLOGIC: Cranial nerves II through XII are grossly intact without focal deficits. Motor strength is 5/5 bilaterally. Deep tendon reflexes are 2+ bilat Assessment/Plan Assessment/Plan ASSESSMENT: This is a 64-year-old male with: 1. Syncopal episode. 2. COVID-19 positive. 3. Hypertension. TREATMENT: 1. Syncopal episode. This may be secondary to hypotension upon arrival. The patient's blood pressure has normalized. Hypotension may be secondary to sepsis versus COVID-19 pneumonia. 2. COVID-19 positive. An infectious disease consultation has been obtained with Dr. Faith. The patient has been placed on intravenous Decadron. A pulmonary consultation has been obtained with Dr. Kavin Ecsobedo. 3. Hypertension. The patient is currently hypotensive. 4. DVT prophylaxis=Antoine Woods MD Feb 17, 2020 12:52
[2020-02-17] MEDS: Tylenol #3 tab (300mg/30mg) ORAL PRN (17:53)
[2020-02-17] MEDS: guaiFENesin 100mg/5ml Liq ud ORAL PRN (21:57)
[2020-02-18] VITALS: BP 110/74
[2020-02-18 04:00] VITALS: BP 119/76
[2020-02-18 07:28] LABS: BASOPHILS % (AUTO) 0.4 % (0.0-2.0); HEMATOCRIT 44.5 % (42.0-52.0); HEMOGLOBIN 15.3 G/DL (14.2-18.0); LYMPHOCYTES % (AUTO) 27.6 % (20.0-45.0); MEAN CORPUSCULAR VOLUME 89 FL (80-99); MONOCYTES % (AUTO) 7.4 % (1.0-10.0); NEUTROPHILS % (AUTO) 64.5 % (45.0-75.0); PLATELET COUNT 182 K/UL (150-450); RED BLOOD COUNT 4.98 M/UL (4.70-6.10); WHITE BLOOD COUNT 8.2 K/UL (4.8-10.8)
[2020-02-18 07:39] LABS: ALANINE AMINOTRANSFERASE 42 U/L (12-78); ALBUMIN 3.5 G/DL (3.4-5.0); ALBUMIN/GLOBULIN RATIO 0.9 (1.0-2.7); ALKALINE PHOSPHATASE 85 U/L (46-116); ANION GAP 8 mmol/L (5-15); ASPARTATE AMINO TRANSFERASE 33 U/L (15-37); BILIRUBIN,TOTAL 0.6 MG/DL (0.2-1.0); BLOOD UREA NITROGEN 17 mg/dL (7-18); CALCIUM 8.8 MG/DL (8.5-10.1); CARBON DIOXIDE 29 MMOL/L (21-32); CHLORIDE 99 MMOL/L (98-107); CREATININE 1.1 MG/DL (0.55-1.30); PHOSPHORUS 3.6 MG/DL (2.5-4.9); POTASSIUM 3.7 MMOL/L (3.5-5.1); SODIUM 136 MMOL/L (136-145)
[2020-02-18 08:00] VITALS: BP 110/69
--- NOTE | 2020-02-18 08:14 | Infectious Diseases Prog Note ---
Assessment/Plan 64yo M with: Fever to 100.5 Normal WBC COVID+ On RA, satting 92-93% Syncopal episode 02/14 CTH at OSH: Neg for acute process 02/15 CXR: Mildly increased interstitial markings. This is nonspecific and may represent a mild bronchitis or pneumonitis. No focal consolidation. Plan: Cont to monitor off abx, off antivirals and off steroids given pt w/ COVID but relatively asymptomatic from resp standpoint, doing well on RA OK to d/c from ID standpoint given pt remains on RA and ambulatory sat was 96- 97% on RA Trend resp status closely Monitor CBC/CMP Monitor temp curve, hemodynamics Monitor resp status D/w RN Thank you for this consult. [facility] will continue to follow. Subjective Allergies: Coded Allergies: No Known Allergies (Unverified , 02/15/20) Tmax 101.4 Remains on RA but satting 92-93%. Ambulatory sat performed, satted 96-97% WBC 8.2 NAD, feels that breathing is fine, main complaint is ongoing fevers and ANGUIANO Objective Last 24 Hour Vital Signs Date Time Temp Pulse Resp B/P (MAP) Pulse Ox O2 Delivery O2 Flow Rate FiO2 02/18/20 04:00 76 02/18/20 04:00 99.6 84 20 119/76 (90) 92 02/18/20 04:00 87 104 109 02/18/20 00:00 83 02/18/20 00:00 99.1 82 20 110/74 (86) 93 02/17/20 22:27 99.1 02/17/20 21:00 Room Air 02/17/20 20:00 91 02/17/20 20:00 101.4 85 24 114/65 (81) 93 02/17/20 18:23 98.9 02/17/20 16:00 74 02/17/20 16:00 88 66 97 02/17/20 16:00 98.9 83 18 127/79 (95) 98 02/17/20 12:00 78 02/17/20 11:54 98.9 78 16 121/69 (86) 98 02/17/20 09:00 Room Air Height (Feet): 5 Height (Inches): 8.00 Weight (Pounds): 193 Gen: NAD HEENT: NCAT Pulm: BL chest rise on RA, non-labored Abd: Non-distended Ext: No c/c/e Skin: No visible rashes Neuro: Awake Laboratory Tests Test 02/18/20 06:08 White Blood Count 8.2 K/UL (4.8-10.8) Red Blood Count 4.98 M/UL (4.70-6.10) Hemoglobin 15.3 G/DL (14.2-18.0) Hematocrit 44.5 % (42.0-52.0) Mean Corpuscular Volume 89 FL (80-99) Mean Corpuscular Hemoglobin 30.7 PG (27.0-31.0) Mean Corpuscular Hemoglobin Concent 34.3 G/DL (32.0-36.0) Red Cell Distribution Width 13.0 % (11.6-14.8) Platelet Count 182 K/UL (150-450) Mean Platelet Volume 7.1 FL (6.5-10.1) Neutrophils (%) (Auto) 64.5 % (45.0-75.0) Lymphocytes (%) (Auto) 27.6 % (20.0-45.0) Monocytes (%) (Auto) 7.4 % (1.0-10.0) Eosinophils (%) (Auto) 0.0 % (0.0-3.0) Basophils (%) (Auto) 0.4 % (0.0-2.0) Erythrocyte Sedimentation Rate Pending Sodium Level 136 MMOL/L (136-145) Potassium Level 3.7 MMOL/L (3.5-5.1) Chloride Level 99 MMOL/L (98-107) Carbon Dioxide Level 29 MMOL/L (21-32) Anion Gap 8 mmol/L (5-15) Blood Urea Nitrogen 17 mg/dL (7-18) Creatinine 1.1 MG/DL (0.55-1.30) Estimat Glomerular Filtration Rate > 60 mL/min (>60) Glucose Level 105 MG/DL (74-106) Calcium Level 8.8 MG/DL (8.5-10.1) Phosphorus Level 3.6 MG/DL (2.5-4.9) Magnesium Level 1.9 MG/DL (1.8-2.4) Total Bilirubin 0.6 MG/DL (0.2-1.0) Aspartate Amino Transf (AST/SGOT) 33 U/L (15-37) Alanine Aminotransferase (ALT/SGPT) 42 U/L (12-78) Alkaline Phosphatase 85 U/L (46-116) C-Reactive Protein, Quantitative 1.7 mg/dL (0.00-0.90) H Total Protein 7.5 G/DL (6.4-8.2) Albumin 3.5 G/DL (3.4-5.0) Globulin 4.0 g/dL Albumin/Globulin Ratio 0.9 (1.0-2.7) L Current Medications Medications (Trade) Dose Ordered Sig/Jazzmine Route PRN Reason Start Time Stop Time Status Last Admin Dose Admin Acetaminophen (Tylenol) 650 mg Q6H PRN ORAL Mild Pain (Pain Scale 1-3) 02/15/20 11:15 03/16/20 11:14 02/17/20 09:51 Acetaminophen (Tylenol) 650 mg Q6H PRN ORAL Temp >100.5 02/15/20 11:15 03/16/20 11:14 02/17/20 21:57 Acetaminophen/ Codeine Phosphate (Tylenol #3) 1 tab Q6H PRN ORAL Pain Scale (6-10) 02/15/20 11:15 02/22/20 11:14 02/17/20 17:53 Albuterol Sulfate (Proventil MDI) 2 puff Q4H PRN INH Shortness of Breath 02/16/20 11:00 05/16/20 10:59 Ascorbic Acid (Vitamin C) 500 mg TWICE A DAY ORAL 02/16/20 18:00 03/17/20 17:59 02/17/20 17:53 Aspirin (ASA) 81 mg DAILY NG 02/16/20 09:00 04/01/20 08:59 02/17/20 09:00 Atorvastatin Calcium (Lipitor) 10 mg BEDTIME ORAL 02/15/20 21:00 05/15/20 20:59 02/17/20 21:57 Enoxaparin Sodium (Lovenox) 40 mg DAILY SUBQ 02/16/20 09:00 05/16/20 08:59 02/17/20 09:00 Guaifenesin (Robitussin) 100 mg Q6H PRN ORAL For Cough 02/16/20 16:00 05/16/20 15:59 02/17/20 21:57 Ondansetron HCl (Zofran) 4 mg Q6H PRN IVP Nausea & Vomiting 02/15/20 11:15 03/16/20 11:14 Zinc Sulfate (Zinc Sulfate) 220 mg DAILY ORAL 02/17/20 09:00 05/17/20 08:59 02/17/20 09:00 Shraddha Foley M.D. Feb 18, 2020 08:14
[2020-02-18] MEDS: Zinc Sulfate 220mg ORAL SCH (08:48)
[2020-02-18] MEDS: Aspirin Baby 81mg NG SCH (08:49)
[2020-02-18] MEDS: Ascorbic Acid 500mg tab ORAL SCH ×2 (08:49→17:31)
[2020-02-18] MEDS: Enoxaparin 40mg Inj SUBQ SCH (08:50)
--- NOTE | 2020-02-18 11:39 | Diagnostic Imaging Report ---
Procedure: XRAY Chest 1v Reason for study: Reason For Exam: [id number] Comparison films: 02/16/2020. FINDINGS: A single one view chest is obtained. Vascularity is normal. The lung fiore are clear bilaterally. Cardiac and mediastinal silhouette are within normal limits. CP angles are sharp. The bony thorax appear unremarkable. IMPRESSION: NO ACUTE CARDIOPULMONARY DISEASE.
[2020-02-18 12:00] VITALS: BP 105/66
--- NOTE | 2020-02-18 12:16 | Pulmonology Progress Note ---
Subjective ROS Limited/Unobtainable: No Constitutional: Reports: no symptoms HEENT: Repors: no symptoms Respiratory: Reports: no symptoms Allergies: Coded Allergies: No Known Allergies (Unverified , 02/15/20) Objective Last 24 Hour Vital Signs Date Time Temp Pulse Resp B/P (MAP) Pulse Ox O2 Delivery O2 Flow Rate FiO2 02/18/20 12:00 98.8 83 20 105/66 (79) 97 02/18/20 09:00 Room Air 02/18/20 08:00 82 02/18/20 08:00 99.7 84 20 110/69 (83) 95 02/18/20 04:00 76 02/18/20 04:00 99.6 84 20 119/76 (90) 92 02/18/20 04:00 87 104 109 02/18/20 00:00 83 02/18/20 00:00 99.1 82 20 110/74 (86) 93 02/17/20 22:27 99.1 02/17/20 21:00 Room Air 02/17/20 20:00 91 02/17/20 20:00 101.4 85 24 114/65 (81) 93 02/17/20 18:23 98.9 02/17/20 16:00 74 02/17/20 16:00 88 66 97 02/17/20 16:00 98.9 83 18 127/79 (95) 98 Intake and Output 02/17/20 02/18/20 19:00 07:00 Intake Total 550 ml Output Total 400 ml Balance 550 ml -400 ml Intake Oral 550 ml Output Urine Total 400 ml # Voids 2 1 General Appearance: WD/WN HEENT: normocephalic, atraumatic Respiratory: chest wall non-tender, lungs clear Cardiovascular: normal peripheral pulses, normal rate Abdomen: normal bowel sounds, soft, non tender Genitourinary: normal external genitalia 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 Laboratory Tests 02/18/20 06:08: White Blood Count 8.2, Red Blood Count 4.98, Hemoglobin 15.3, Hematocrit 44.5, Mean Corpuscular Volume 89, Mean Corpuscular Hemoglobin 30.7, Mean Corpuscular Hemoglobin Concent 34.3, Red Cell Distribution Width 13.0, Platelet Count 182, Mean Platelet Volume 7.1, Neutrophils (%) (Auto) 64.5, Lymphocytes (%) (Auto) 27.6, Monocytes (%) (Auto) 7.4, Eosinophils (%) (Auto) 0.0, Basophils (%) (Auto) 0.4, Erythrocyte Sedimentation Rate 30H, Sodium Level 136, Potassium Level 3.7, Chloride Level 99, Carbon Dioxide Level 29, Anion Gap 8, Blood Urea Nitrogen 17, Creatinine 1.1, Estimat Glomerular Filtration Rate > 60, Glucose Level 105, Calcium Level 8.8, Phosphorus Level 3.6, Magnesium Level 1.9, Total Bilirubin 0.6, Aspartate Amino Transf (AST/SGOT) 33, Alanine Aminotransferase (ALT/SGPT) 42, Alkaline Phosphatase 85, C-Reactive Protein, Quantitative 1.7H, Total Protein 7.5, Albumin 3.5, Globulin 4.0, Albumin/Globulin Ratio 0.9L Current Medications Medications (Trade) Dose Ordered Sig/Jazzmine Route PRN Reason Start Time Stop Time Status Last Admin Dose Admin Acetaminophen (Tylenol) 650 mg Q6H PRN ORAL Mild Pain (Pain Scale 1-3) 02/15/20 11:15 03/16/20 11:14 02/17/20 09:51 Acetaminophen (Tylenol) 650 mg Q6H PRN ORAL Temp >100.5 02/15/20 11:15 03/16/20 11:14 02/17/20 21:57 Acetaminophen/ Codeine Phosphate (Tylenol #3) 1 tab Q6H PRN ORAL Pain Scale (6-10) 02/15/20 11:15 02/22/20 11:14 02/17/20 17:53 Albuterol Sulfate (Proventil MDI) 2 puff Q4H PRN INH Shortness of Breath 02/16/20 11:00 05/16/20 10:59 Ascorbic Acid (Vitamin C) 500 mg TWICE A DAY ORAL 02/16/20 18:00 03/17/20 17:59 02/18/20 08:49 Aspirin (ASA) 81 mg DAILY NG 02/16/20 09:00 04/01/20 08:59 02/18/20 08:49 Atorvastatin Calcium (Lipitor) 10 mg BEDTIME ORAL 02/15/20 21:00 05/15/20 20:59 02/17/20 21:57 Enoxaparin Sodium (Lovenox) 40 mg DAILY SUBQ 12/6/20 09:00 05/16/20 08:59 02/18/20 08:50 Guaifenesin (Robitussin) 100 mg Q6H PRN ORAL For Cough 02/16/20 16:00 05/16/20 15:59 02/17/20 21:57 Ondansetron HCl (Zofran) 4 mg Q6H PRN IVP Nausea & Vomiting 02/15/20 11:15 03/16/20 11:14 Zinc Sulfate (Zinc Sulfate) 220 mg DAILY ORAL 02/17/20 09:00 05/17/20 08:59 02/18/20 08:48 Assessment/Plan Problems: (1) Syncope (2) COVID-19 (3) HTN (hypertension) (4) Sepsis Assessment/Plan CXR reviewed: no acute illness no new complains Echo reviewed: EF is 65% BP controlled CRP is down to 1.8 ] Kavin Escobedo MD Feb 18, 2020 12:16
[2020-02-18] MEDS: guaiFENesin 100mg/5ml Liq ud ORAL PRN ×2 (13:18→21:39)
[2020-02-18] MEDS: Tylenol #3 tab (300mg/30mg) ORAL PRN ×2 (13:19→21:53)
[2020-02-18 16:00] VITALS: BP 118/64
--- NOTE | 2020-02-18 17:08 | Internal Med Progress Note ---
Subjective Date of Service: Feb 18, 2020 Physician Name Antoine Powell Attending Physician Mckay Diaz MD Current Medications Medications (Trade) Dose Ordered Sig/Jazzmine Route PRN Reason Start Time Stop Time Status Last Admin Dose Admin Acetaminophen (Tylenol) 650 mg Q6H PRN ORAL Mild Pain (Pain Scale 1-3) 02/15/20 11:15 03/16/20 11:14 02/17/20 09:51 Acetaminophen (Tylenol) 650 mg Q6H PRN ORAL Temp >100.5 02/15/20 11:15 03/16/20 11:14 02/17/20 21:57 Acetaminophen/ Codeine Phosphate (Tylenol #3) 1 tab Q6H PRN ORAL Pain Scale (6-10) 02/15/20 11:15 02/22/20 11:14 02/18/20 13:19 Albuterol Sulfate (Proventil MDI) 2 puff Q4H PRN INH Shortness of Breath 02/16/20 11:00 05/16/20 10:59 Ascorbic Acid (Vitamin C) 500 mg TWICE A DAY ORAL 02/16/20 18:00 03/17/20 17:59 02/18/20 08:49 Aspirin (ASA) 81 mg DAILY NG 02/16/20 09:00 04/01/20 08:59 02/18/20 08:49 Atorvastatin Calcium (Lipitor) 10 mg BEDTIME ORAL 02/15/20 21:00 05/15/20 20:59 02/17/20 21:57 Enoxaparin Sodium (Lovenox) 40 mg DAILY SUBQ 02/16/20 09:00 05/16/20 08:59 02/18/20 08:50 Guaifenesin (Robitussin) 100 mg Q6H PRN ORAL For Cough 02/16/20 16:00 05/16/20 15:59 02/18/20 13:18 Ondansetron HCl (Zofran) 4 mg Q6H PRN IVP Nausea & Vomiting 02/15/20 11:15 03/16/20 11:14 Zinc Sulfate (Zinc Sulfate) 220 mg DAILY ORAL 02/17/20 09:00 05/17/20 08:59 02/18/20 08:48 Allergies: Coded Allergies: No Known Allergies (Unverified , 02/15/20) ROS Limited/Unobtainable: No Constitutional: Reports: no symptoms HEENT: Reports: no symptoms Cardiovascular: Reports: no symptoms Respiratory: Reports: cough, shortness of breath Gastrointestinal/Abdominal: Reports: no symptoms Genitourinary: Reports: no symptoms Neurologic/Psychiatric: Reports: no symptoms Subjective 64 YO M admitted with syncope. Now respiratory failure and COVID 19 pneumonia. Cover for Int Cas - Dr Diaz Objective Last Vital Signs Date Time Temp Pulse Resp B/P (MAP) Pulse Ox O2 Delivery O2 Flow Rate FiO2 02/18/20 16:00 99.1 96 20 118/64 (82) 96 02/18/20 09:00 Room Air 02/15/20 10:06 2.0 Laboratory Tests Test 02/18/20 06:08 White Blood Count 8.2 K/UL (4.8-10.8) Red Blood Count 4.98 M/UL (4.70-6.10) Hemoglobin 15.3 G/DL (14.2-18.0) Hematocrit 44.5 % (42.0-52.0) Mean Corpuscular Volume 89 FL (80-99) Mean Corpuscular Hemoglobin 30.7 PG (27.0-31.0) Mean Corpuscular Hemoglobin Concent 34.3 G/DL (32.0-36.0) Red Cell Distribution Width 13.0 % (11.6-14.8) Platelet Count 182 K/UL (150-450) Mean Platelet Volume 7.1 FL (6.5-10.1) Neutrophils (%) (Auto) 64.5 % (45.0-75.0) Lymphocytes (%) (Auto) 27.6 % (20.0-45.0) Monocytes (%) (Auto) 7.4 % (1.0-10.0) Eosinophils (%) (Auto) 0.0 % (0.0-3.0) Basophils (%) (Auto) 0.4 % (0.0-2.0) Erythrocyte Sedimentation Rate 30 MM/HR (0-20) H Sodium Level 136 MMOL/L (136-145) Potassium Level 3.7 MMOL/L (3.5-5.1) Chloride Level 99 MMOL/L (98-107) Carbon Dioxide Level 29 MMOL/L (21-32) Anion Gap 8 mmol/L (5-15) Blood Urea Nitrogen 17 mg/dL (7-18) Creatinine 1.1 MG/DL (0.55-1.30) Estimat Glomerular Filtration Rate > 60 mL/min (>60) Glucose Level 105 MG/DL (74-106) Calcium Level 8.8 MG/DL (8.5-10.1) Phosphorus Level 3.6 MG/DL (2.5-4.9) Magnesium Level 1.9 MG/DL (1.8-2.4) Total Bilirubin 0.6 MG/DL (0.2-1.0) Aspartate Amino Transf (AST/SGOT) 33 U/L (15-37) Alanine Aminotransferase (ALT/SGPT) 42 U/L (12-78) Alkaline Phosphatase 85 U/L (46-116) C-Reactive Protein, Quantitative 1.7 mg/dL (0.00-0.90) H Total Protein 7.5 G/DL (6.4-8.2) Albumin 3.5 G/DL (3.4-5.0) Globulin 4.0 g/dL Albumin/Globulin Ratio 0.9 (1.0-2.7) L Intake and Output 02/17/20 02/18/20 19:00 07:00 Intake Total 550 ml Output Total 400 ml Balance 550 ml -400 ml Intake Oral 550 ml Output Urine Total 400 ml # Voids 2 1 Objective PHYSICAL EXAMINATION: GENERAL: The patient is a well-developed, well-nourished male, in no apparent distress. HEENT: Eyes, pupils are equal and responsive to light and accommodation. Extraocular movements are intact. NECK: Supple without lymphadenopathy. CHEST: Lungs are clear to auscultation bilaterally without wheezes or rales. CARDIOVASCULAR: Regular rate. S1, S2 are normal without murmurs, rubs, or gallops. ABDOMEN: Soft, nontender, and nondistended. Positive bowel sounds. No evidence of hepatosplenomegaly. Currently no rebound or guarding. EXTREMITIES: Negative for clubbing, cyanosis, or edema. RECTAL/GENITALIA: Not performed. NEUROLOGIC: Cranial nerves II through XII are grossly intact without focal deficits. Motor strength is 5/5 bilaterally. Deep tendon reflexes are 2+ bilat Assessment/Plan Assessment/Plan ASSESSMENT: This is a 64-year-old male with: 1. Syncopal episode. 2. COVID-19 positive. 3. Hypertension. TREATMENT: 1. Syncopal episode. This may be secondary to hypotension upon arrival. The patient's blood pressure has normalized. Cardiology=Dr oPlo 2. COVID-19 positive. An infectious disease consultation has been obtained with Dr. Faith. Continue intravenous Decadron. A pulmonary consultation has been obtained with Dr. Kavin Escobedo. 3. Hypertension. The patient is currently hypotensive; hold antihypertensive meds. 4. DVT prophylaxis=Antoine Woods MD Feb 18, 2020 17:08
[2020-02-18 20:00] VITALS: BP 114/72
[2020-02-19] VITALS: BP 110/70
[2020-02-19 04:00] VITALS: BP 106/73
[2020-02-19 08:00] VITALS: BP 108/64
--- NOTE | 2020-02-19 08:17 | Infectious Diseases Prog Note ---
Assessment/Plan 64yo M with: Fever to 100.5 Normal WBC COVID+ On RA, satting 92-93% Syncopal episode 02/14 CTH at OSH: Neg for acute process 02/15 CXR: Mildly increased interstitial markings. This is nonspecific and may represent a mild bronchitis or pneumonitis. No focal consolidation. Plan: Cont to monitor off abx, off antivirals and off steroids given pt w/ COVID but relatively asymptomatic from resp standpoint, doing well on RA OK to d/c from ID standpoint given pt satting well on RA, fevers w/ viral infection are expected and may continue post-discharge, importantly the pt's resp status has been stable Trend resp status closely Monitor CBC/CMP Monitor temp curve, hemodynamics Monitor resp status D/w RN Thank you for this consult. [facility] will continue to follow. Subjective Allergies: Coded Allergies: No Known Allergies (Unverified , 02/15/20) Tmax 100.9 NAD on RA Reports ANGUIANO is about the same as day prior, was coughing overnigth Breathing still is good, able to ambulate wo breathing issues WBC 6.3 Objective Last 24 Hour Vital Signs Date Time Temp Pulse Resp B/P (MAP) Pulse Ox O2 Delivery O2 Flow Rate FiO2 02/19/20 07:06 100.9 02/19/20 04:00 81 02/19/20 04:00 100.9 81 18 106/73 (84) 93 02/19/20 04:00 93 81 02/19/20 00:00 93 02/19/20 00:00 99.5 88 18 110/70 (83) 98 02/18/20 22:23 99.1 02/18/20 21:00 Room Air 02/18/20 20:00 100.6 90 18 114/72 (86) 94 02/18/20 20:00 86 02/18/20 16:00 73 02/18/20 16:00 80 94 103 02/18/20 16:00 99.1 96 20 118/64 (82) 96 02/18/20 12:00 78 02/18/20 12:00 98.8 83 20 105/66 (79) 97 02/18/20 09:00 Room Air Height (Feet): 5 Height (Inches): 8.00 Weight (Pounds): 193 Gen: NAD HEENT: NCAT Pulm: BL chest rise on RA, non-labored Abd: Non-distended Ext: No c/c/e Skin: No visible rashes Neuro: Awake Current Medications Medications (Trade) Dose Ordered Sig/Jazzmine Route PRN Reason Start Time Stop Time Status Last Admin Dose Admin Acetaminophen (Tylenol) 650 mg Q6H PRN ORAL Mild Pain (Pain Scale 1-3) 02/15/20 11:15 03/16/20 11:14 02/17/20 09:51 Acetaminophen (Tylenol) 650 mg Q6H PRN ORAL Temp >100.5 02/15/20 11:15 03/16/20 11:14 02/19/20 06:36 Acetaminophen/ Codeine Phosphate (Tylenol #3) 1 tab Q6H PRN ORAL Pain Scale (6-10) 02/15/20 11:15 02/22/20 11:14 02/18/20 21:53 Albuterol Sulfate (Proventil MDI) 2 puff Q4H PRN INH Shortness of Breath 02/16/20 11:00 05/16/20 10:59 Ascorbic Acid (Vitamin C) 500 mg TWICE A DAY ORAL 02/16/20 18:00 03/17/20 17:59 02/18/20 17:31 Aspirin (ASA) 81 mg DAILY NG 02/16/20 09:00 04/01/20 08:59 02/18/20 08:49 Atorvastatin Calcium (Lipitor) 10 mg BEDTIME ORAL 02/15/20 21:00 05/15/20 20:59 02/18/20 21:39 Enoxaparin Sodium (Lovenox) 40 mg DAILY SUBQ 02/16/20 09:00 05/16/20 08:59 02/18/20 08:50 Guaifenesin (Robitussin) 100 mg Q6H PRN ORAL For Cough 02/16/20 16:00 05/16/20 15:59 02/18/20 21:39 Ondansetron HCl (Zofran) 4 mg Q6H PRN IVP Nausea & Vomiting 02/15/20 11:15 03/16/20 11:14 Zinc Sulfate (Zinc Sulfate) 220 mg DAILY ORAL 02/17/20 09:00 05/17/20 08:59 02/18/20 08:48 Shraddha Foley M.D. Feb 19, 2020 08:17
[2020-02-19 08:43] LABS: BASOPHILS % (AUTO) 0.4 % (0.0-2.0); EOSINOPHILS % (AUTO) 0.1 % (0.0-3.0); HEMATOCRIT 42.7 % (42.0-52.0); HEMOGLOBIN 14.8 G/DL (14.2-18.0); LYMPHOCYTES % (AUTO) 29.4 % (20.0-45.0); MEAN CORPUSCULAR VOLUME 88 FL (80-99); MONOCYTES % (AUTO) 7.2 % (1.0-10.0); NEUTROPHILS % (AUTO) 62.9 % (45.0-75.0); PLATELET COUNT 148 K/UL (150-450); RED BLOOD COUNT 4.84 M/UL (4.70-6.10); RED CELL DISTRIBUTION WIDTH 13.1 % (11.6-14.8); WHITE BLOOD COUNT 6.3 K/UL (4.8-10.8)
[2020-02-19 08:51] LABS: ANION GAP 8 mmol/L (5-15); BLOOD UREA NITROGEN 14 mg/dL (7-18); CALCIUM 8.4 MG/DL (8.5-10.1); CARBON DIOXIDE 27 MMOL/L (21-32); CHLORIDE 99 MMOL/L (98-107); POTASSIUM 3.6 MMOL/L (3.5-5.1); SODIUM 134 MMOL/L (136-145)
[2020-02-19] MEDS: Zinc Sulfate 220mg ORAL SCH (08:53)
[2020-02-19] MEDS: Ascorbic Acid 500mg tab ORAL SCH ×2 (08:53→17:11)
[2020-02-19] MEDS: Aspirin Baby 81mg NG SCH (08:53)
[2020-02-19] MEDS: Enoxaparin 40mg Inj SUBQ SCH (08:53)
[2020-02-19 12:00] VITALS: BP 105/66
--- NOTE | 2020-02-19 12:03 | Internal Med Progress Note ---
Subjective Date of Service: Feb 19, 2020 Physician Name Antoine Powell Attending Physician Mckay Diaz MD Current Medications Medications (Trade) Dose Ordered Sig/Jazzmine Route PRN Reason Start Time Stop Time Status Last Admin Dose Admin Acetaminophen (Tylenol) 650 mg Q6H PRN ORAL Mild Pain (Pain Scale 1-3) 02/15/20 11:15 03/16/20 11:14 02/17/20 09:51 Acetaminophen (Tylenol) 650 mg Q6H PRN ORAL Temp >100.5 02/15/20 11:15 03/16/20 11:14 02/19/20 06:36 Acetaminophen/ Codeine Phosphate (Tylenol #3) 1 tab Q6H PRN ORAL Pain Scale (6-10) 02/15/20 11:15 02/22/20 11:14 02/18/20 21:53 Albuterol Sulfate (Proventil MDI) 2 puff Q4H PRN INH Shortness of Breath 02/16/20 11:00 05/16/20 10:59 Ascorbic Acid (Vitamin C) 500 mg TWICE A DAY ORAL 02/16/20 18:00 03/17/20 17:59 02/19/20 08:53 Aspirin (ASA) 81 mg DAILY NG 02/16/20 09:00 04/01/20 08:59 02/19/20 08:53 Atorvastatin Calcium (Lipitor) 10 mg BEDTIME ORAL 02/15/20 21:00 05/15/20 20:59 02/18/20 21:39 Enoxaparin Sodium (Lovenox) 40 mg DAILY SUBQ 02/16/20 09:00 05/16/20 08:59 02/19/20 08:53 Guaifenesin (Robitussin) 100 mg Q6H PRN ORAL For Cough 02/16/20 16:00 05/16/20 15:59 02/18/20 21:39 Ondansetron HCl (Zofran) 4 mg Q6H PRN IVP Nausea & Vomiting 02/15/20 11:15 03/16/20 11:14 Zinc Sulfate (Zinc Sulfate) 220 mg DAILY ORAL 02/17/20 09:00 05/17/20 08:59 02/19/20 08:53 Allergies: Coded Allergies: No Known Allergies (Unverified , 02/15/20) ROS Limited/Unobtainable: No Constitutional: Reports: fever HEENT: Reports: no symptoms Cardiovascular: Reports: no symptoms Respiratory: Reports: no symptoms Gastrointestinal/Abdominal: Reports: no symptoms Genitourinary: Reports: no symptoms Neurologic/Psychiatric: Reports: no symptoms Subjective 64 YO M admitted with syncope. Now respiratory failure and COVID 19 pneumonia. Cover for Int Med - Dr Diaz. Low grade fever to 100.9 F Objective Last Vital Signs Date Time Temp Pulse Resp B/P (MAP) Pulse Ox O2 Delivery O2 Flow Rate FiO2 02/19/20 09:00 Room Air 02/19/20 08:00 97.9 80 18 108/64 (79) 95 02/15/20 10:06 2.0 Laboratory Tests Test 02/19/20 08:10 White Blood Count 6.3 K/UL (4.8-10.8) Red Blood Count 4.84 M/UL (4.70-6.10) Hemoglobin 14.8 G/DL (14.2-18.0) Hematocrit 42.7 % (42.0-52.0) Mean Corpuscular Volume 88 FL (80-99) Mean Corpuscular Hemoglobin 30.6 PG (27.0-31.0) Mean Corpuscular Hemoglobin Concent 34.7 G/DL (32.0-36.0) Red Cell Distribution Width 13.1 % (11.6-14.8) Platelet Count 148 K/UL (150-450) L Mean Platelet Volume 7.0 FL (6.5-10.1) Neutrophils (%) (Auto) 62.9 % (45.0-75.0) Lymphocytes (%) (Auto) 29.4 % (20.0-45.0) Monocytes (%) (Auto) 7.2 % (1.0-10.0) Eosinophils (%) (Auto) 0.1 % (0.0-3.0) Basophils (%) (Auto) 0.4 % (0.0-2.0) Sodium Level 134 MMOL/L (136-145) L Potassium Level 3.6 MMOL/L (3.5-5.1) Chloride Level 99 MMOL/L (98-107) Carbon Dioxide Level 27 MMOL/L (21-32) Anion Gap 8 mmol/L (5-15) Blood Urea Nitrogen 14 mg/dL (7-18) Creatinine 1.0 MG/DL (0.55-1.30) Estimat Glomerular Filtration Rate > 60 mL/min (>60) Glucose Level 110 MG/DL (74-106) H Calcium Level 8.4 MG/DL (8.5-10.1) L Intake and Output 02/18/20 02/19/20 19:00 07:00 Intake Total 400 ml 118 ml Output Total 800 ml 700 ml Balance -400 ml -582 ml Intake Oral 400 ml 118 ml Output Urine Total 800 ml 700 ml # Voids 2 Objective PHYSICAL EXAMINATION: GENERAL: The patient is a well-developed, well-nourished male, in no apparent distress. HEENT: Eyes, pupils are equal and responsive to light and accommodation. Extraocular movements are intact. NECK: Supple without lymphadenopathy. CHEST: Lungs are clear to auscultation bilaterally without wheezes or rales. CARDIOVASCULAR: Regular rate. S1, S2 are normal without murmurs, rubs, or gallops. ABDOMEN: Soft, nontender, and nondistended. Positive bowel sounds. No evidence of hepatosplenomegaly. Currently no rebound or guarding. EXTREMITIES: Negative for clubbing, cyanosis, or edema. RECTAL/GENITALIA: Not performed. NEUROLOGIC: Cranial nerves II through XII are grossly intact without focal deficits. Motor strength is 5/5 bilaterally. Deep tendon reflexes are 2+ bilat Assessment/Plan Assessment/Plan ASSESSMENT: This is a 64-year-old male with: 1. Syncopal episode. 2. COVID-19 positive. 3. Hypertension. TREATMENT: 1. Syncopal episode. This may be secondary to hypotension upon arrival. The patient's blood pressure has normalized. Cardiology=Dr Polo 2. COVID-19 positive. An infectious disease consultation has been obtained with Dr. Faith. Continue intravenous Decadron. A pulmonary consultation has been obtained with Dr. Kavin Escobedo. 3. Hypertension. The patient is currently hypotensive; hold antihypertensive meds. 4. DVT prophylaxis=Antoine Guerrier MD Feb 19, 2020 12:03
--- NOTE | 2020-02-19 12:19 | Pulmonology Progress Note ---
Subjective ROS Limited/Unobtainable: No Constitutional: Reports: no symptoms HEENT: Repors: no symptoms Respiratory: Reports: no symptoms Allergies: Coded Allergies: No Known Allergies (Unverified , 02/15/20) Objective Last 24 Hour Vital Signs Date Time Temp Pulse Resp B/P (MAP) Pulse Ox O2 Delivery O2 Flow Rate FiO2 02/19/20 09:00 Room Air 02/19/20 08:00 97.9 80 18 108/64 (79) 95 02/19/20 07:48 75 02/19/20 07:06 100.9 02/19/20 04:00 81 02/19/20 04:00 100.9 81 18 106/73 (84) 93 02/19/20 04:00 93 81 02/19/20 00:00 93 02/19/20 00:00 99.5 88 18 110/70 (83) 98 02/18/20 22:23 99.1 02/18/20 21:00 Room Air 02/18/20 20:00 100.6 90 18 114/72 (86) 94 02/18/20 20:00 86 02/18/20 16:00 73 02/18/20 16:00 80 94 103 02/18/20 16:00 99.1 96 20 118/64 (82) 96 Intake and Output 02/18/20 02/19/20 19:00 07:00 Intake Total 400 ml 118 ml Output Total 800 ml 700 ml Balance -400 ml -582 ml Intake Oral 400 ml 118 ml Output Urine Total 800 ml 700 ml # Voids 2 General Appearance: WD/WN HEENT: normocephalic, atraumatic Respiratory: chest wall non-tender, lungs clear Cardiovascular: normal peripheral pulses, normal rate Abdomen: normal bowel sounds, soft, non tender Genitourinary: normal external genitalia 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 Laboratory Tests 02/19/20 08:10: White Blood Count 6.3, Red Blood Count 4.84, Hemoglobin 14.8, Hematocrit 42.7, Mean Corpuscular Volume 88, Mean Corpuscular Hemoglobin 30.6, Mean Corpuscular Hemoglobin Concent 34.7, Red Cell Distribution Width 13.1, Platelet Count 148L, Mean Platelet Volume 7.0, Neutrophils (%) (Auto) 62.9, Lymphocytes (%) (Auto) 29.4, Monocytes (%) (Auto) 7.2, Eosinophils (%) (Auto) 0.1, Basophils (%) (Auto) 0.4, Sodium Level 134L, Potassium Level 3.6, Chloride Level 99, Carbon Dioxide Level 27, Anion Gap 8, Blood Urea Nitrogen 14, Creatinine 1.0, Estimat Glomerular Filtration Rate > 60, Glucose Level 110H, Calcium Level 8.4L Current Medications Medications (Trade) Dose Ordered Sig/Jazzmine Route PRN Reason Start Time Stop Time Status Last Admin Dose Admin Acetaminophen (Tylenol) 650 mg Q6H PRN ORAL Mild Pain (Pain Scale 1-3) 02/15/20 11:15 03/16/20 11:14 02/17/20 09:51 Acetaminophen (Tylenol) 650 mg Q6H PRN ORAL Temp >100.5 02/15/20 11:15 03/16/20 11:14 02/19/20 06:36 Acetaminophen/ Codeine Phosphate (Tylenol #3) 1 tab Q6H PRN ORAL Pain Scale (6-10) 02/15/20 11:15 02/22/20 11:14 02/18/20 21:53 Albuterol Sulfate (Proventil MDI) 2 puff Q4H PRN INH Shortness of Breath 02/16/20 11:00 05/16/20 10:59 Ascorbic Acid (Vitamin C) 500 mg TWICE A DAY ORAL 02/16/20 18:00 03/17/20 17:59 02/19/20 08:53 Aspirin (ASA) 81 mg DAILY NG 02/16/20 09:00 04/01/20 08:59 02/19/20 08:53 Atorvastatin Calcium (Lipitor) 10 mg BEDTIME ORAL 02/15/20 21:00 05/15/20 20:59 02/18/20 21:39 Enoxaparin Sodium (Lovenox) 40 mg DAILY SUBQ 02/16/20 09:00 05/16/20 08:59 02/19/20 08:53 Guaifenesin (Robitussin) 100 mg Q6H PRN ORAL For Cough 02/16/20 16:00 05/16/20 15:59 02/18/20 21:39 Ondansetron HCl (Zofran) 4 mg Q6H PRN IVP Nausea & Vomiting 02/15/20 11:15 03/16/20 11:14 Zinc Sulfate (Zinc Sulfate) 220 mg DAILY ORAL 02/17/20 09:00 05/17/20 08:59 02/19/20 08:53 Assessment/Plan Problems: (1) Low grade fever (2) Syncope (3) COVID-19 (4) HTN (hypertension) (5) Sepsis Assessment/Plan episodes of low grade fever CXR reviewed: no acute illness no new complains Echo reviewed: EF is 65% BP controlled ] Kavin Escobedo MD Feb 19, 2020 12:19
[2020-02-19 16:00] VITALS: BP 117/72
--- NOTE | 2020-02-19 17:26 | Diagnostic Imaging Report ---
Indication: Syncope TECHNIQUE: Duplex extracranial carotid and vertebral artery sonography performed with color flow imaging and waveform analysis. COMPARISON: None FINDINGS: Examination is limited, with incomplete imaging of the internal carotid arteries bilaterally. Right carotid: Grayscale and color-flow imaging demonstrating no hemodynamically significant stenosis within the common carotid artery or proximal right internal carotid artery. There are scattered noncalcified atherosclerotic plaques and mild multifocal intimal thickening. Left carotid: Grayscale and color-flow imaging demonstrating no hemodynamically significant stenosis within the common carotid artery or proximal left internal carotid artery. There are scattered noncalcified atherosclerotic plaques and mild multifocal intimal thickening. Vertebral arteries: Antegrade flow demonstrated within the right vertebral artery. Left vertebral artery is not visualized. IMPRESSION: Limited study due to incomplete evaluation of the distal internal carotid arteries. 1. No evidence of hemodynamically significant stenosis in the right common carotid arteries or proximal internal carotid artery. 2. No evidence of hemodynamically significant stenosis in the left common carotid or intracranial internal carotid artery. This report utilizes carotid stenosis grading criteria based on the meeting of Society of radiologists in ultrasound consensus conference, December 2001.
[2020-02-19 20:00] VITALS: BP 103/72
[2020-02-19] MEDS: guaiFENesin 100mg/5ml Liq ud ORAL PRN (21:12)
[2020-02-20] VITALS: BP 92/71
[2020-02-20 04:00] VITALS: BP 113/76
[2020-02-20 08:00] VITALS: BP 106/63
--- NOTE | 2020-02-20 08:17 | Infectious Diseases Prog Note ---
Assessment/Plan 64yo M with: Fever to 100.5 Normal WBC COVID+ On RA, satting 92-93% Syncopal episode 02/14 CTH at OSH: Neg for acute process 02/15 CXR: Mildly increased interstitial markings. This is nonspecific and may represent a mild bronchitis or pneumonitis. No focal consolidation. Plan: Cont to monitor off abx, off antivirals and off steroids given pt w/ COVID but relatively asymptomatic from resp standpoint, doing well on RA OK to d/c from ID standpoint given pt satting well on RA, fevers w/ viral infection are expected and may continue post-discharge, importantly the pt's resp status has been stable Trend resp status closely Monitor CBC/CMP Monitor temp curve, hemodynamics Monitor resp status D/w RN Thank you for this consult. [facility] will continue to follow. Subjective Allergies: Coded Allergies: No Known Allergies (Unverified , 02/15/20) Tmax 101.2 NAD on RA ANGUIANO improved, fevers improved Objective Last 24 Hour Vital Signs Date Time Temp Pulse Resp B/P (MAP) Pulse Ox O2 Delivery O2 Flow Rate FiO2 02/20/20 04:00 99.9 85 20 113/76 (88) 96 02/20/20 04:00 78 02/20/20 04:00 100 02/20/20 00:00 99.3 84 18 92/71 (78) 95 02/20/20 00:00 78 02/19/20 21:42 99.3 02/19/20 21:00 Room Air 02/19/20 20:00 101.2 95 18 103/72 (82) 92 02/19/20 20:00 90 02/19/20 16:10 107 02/19/20 16:05 85 02/19/20 16:00 97.7 81 20 117/72 (87) 95 02/19/20 16:00 81 02/19/20 15:24 77 02/19/20 12:00 98.8 72 20 105/66 (79) 95 02/19/20 11:54 78 02/19/20 09:00 Room Air Height (Feet): 5 Height (Inches): 8.00 Weight (Pounds): 193 Gen: NAD HEENT: NCAT Pulm: BL chest rise on RA, non-labored Abd: Non-distended Ext: No c/c/e Skin: No visible rashes Neuro: Awake Current Medications Medications (Trade) Dose Ordered Sig/Jazzmine Route PRN Reason Start Time Stop Time Status Last Admin Dose Admin Acetaminophen (Tylenol) 650 mg Q6H PRN ORAL Mild Pain (Pain Scale 1-3) 02/15/20 11:15 03/16/20 11:14 02/17/20 09:51 Acetaminophen (Tylenol) 650 mg Q6H PRN ORAL Temp >100.5 02/15/20 11:15 03/16/20 11:14 02/19/20 21:12 Acetaminophen/ Codeine Phosphate (Tylenol #3) 1 tab Q6H PRN ORAL Pain Scale (6-10) 02/15/20 11:15 02/22/20 11:14 02/18/20 21:53 Albuterol Sulfate (Proventil MDI) 2 puff Q4H PRN INH Shortness of Breath 02/16/20 11:00 05/16/20 10:59 Ascorbic Acid (Vitamin C) 500 mg TWICE A DAY ORAL 02/16/20 18:00 03/17/20 17:59 02/19/20 17:11 Aspirin (ASA) 81 mg DAILY NG 02/16/20 09:00 04/01/20 08:59 02/19/20 08:53 Atorvastatin Calcium (Lipitor) 10 mg BEDTIME ORAL 02/15/20 21:00 05/15/20 20:59 02/19/20 21:11 Enoxaparin Sodium (Lovenox) 40 mg DAILY SUBQ 02/16/20 09:00 05/16/20 08:59 02/19/20 08:53 Guaifenesin (Robitussin) 100 mg Q6H PRN ORAL For Cough 02/16/20 16:00 05/16/20 15:59 02/19/20 21:12 Ondansetron HCl (Zofran) 4 mg Q6H PRN IVP Nausea & Vomiting 02/15/20 11:15 03/16/20 11:14 Zinc Sulfate (Zinc Sulfate) 220 mg DAILY ORAL 02/17/20 09:00 05/17/20 08:59 02/19/20 08:53 Shraddha Foley M.D. Feb 20, 2020 08:17
[2020-02-20] MEDS: Zinc Sulfate 220mg ORAL SCH (08:29)
[2020-02-20] MEDS: Ascorbic Acid 500mg tab ORAL SCH (08:29)
[2020-02-20] MEDS: Enoxaparin 40mg Inj SUBQ SCH (08:29)
[2020-02-20] MEDS: Aspirin Baby 81mg NG SCH (08:29)
[2020-02-20 12:00] VITALS: BP 116/60
--- NOTE | 2020-02-20 12:08 | Pulmonology Progress Note ---
Subjective ROS Limited/Unobtainable: No Constitutional: Reports: no symptoms HEENT: Repors: no symptoms Respiratory: Reports: no symptoms Allergies: Coded Allergies: No Known Allergies (Unverified , 02/15/20) Objective Last 24 Hour Vital Signs Date Time Temp Pulse Resp B/P (MAP) Pulse Ox O2 Delivery O2 Flow Rate FiO2 02/20/20 08:00 99.5 81 20 106/63 (77) 94 02/20/20 08:00 87 02/20/20 04:00 99.9 85 20 113/76 (88) 96 02/20/20 04:00 78 02/20/20 04:00 100 02/20/20 00:00 99.3 84 18 92/71 (78) 95 02/20/20 00:00 78 02/19/20 21:42 99.3 02/19/20 21:00 Room Air 02/19/20 20:00 101.2 95 18 103/72 (82) 92 02/19/20 20:00 90 02/19/20 16:10 107 02/19/20 16:05 85 02/19/20 16:00 97.7 81 20 117/72 (87) 95 02/19/20 16:00 81 02/19/20 15:24 77 Intake and Output 02/19/20 02/20/20 19:00 07:00 Intake Total 240 ml Output Total 400 ml 850 ml Balance -400 ml -610 ml Intake Oral 240 ml Output Urine Total 400 ml 850 ml # Voids 2 2 General Appearance: WD/WN HEENT: normocephalic, atraumatic Respiratory: chest wall non-tender, lungs clear Cardiovascular: normal peripheral pulses, normal rate Abdomen: normal bowel sounds, soft, non tender Genitourinary: normal external genitalia 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 Current Medications Medications (Trade) Dose Ordered Sig/Jazzmine Route PRN Reason Start Time Stop Time Status Last Admin Dose Admin Acetaminophen (Tylenol) 650 mg Q6H PRN ORAL Mild Pain (Pain Scale 1-3) 02/15/20 11:15 03/16/20 11:14 02/17/20 09:51 Acetaminophen (Tylenol) 650 mg Q6H PRN ORAL Temp >100.5 02/15/20 11:15 03/16/20 11:14 02/19/20 21:12 Acetaminophen/ Codeine Phosphate (Tylenol #3) 1 tab Q6H PRN ORAL Pain Scale (6-10) 02/15/20 11:15 02/22/20 11:14 02/18/20 21:53 Albuterol Sulfate (Proventil MDI) 2 puff Q4H PRN INH Shortness of Breath 02/16/20 11:00 05/16/20 10:59 Ascorbic Acid (Vitamin C) 500 mg TWICE A DAY ORAL 02/16/20 18:00 03/17/20 17:59 02/20/20 08:29 Aspirin (ASA) 81 mg DAILY NG 02/16/20 09:00 04/01/20 08:59 02/20/20 08:29 Atorvastatin Calcium (Lipitor) 10 mg BEDTIME ORAL 02/15/20 21:00 05/15/20 20:59 02/19/20 21:11 Enoxaparin Sodium (Lovenox) 40 mg DAILY SUBQ 02/16/20 09:00 05/16/20 08:59 02/19/20 08:53 Guaifenesin (Robitussin) 100 mg Q6H PRN ORAL For Cough 02/16/20 16:00 05/16/20 15:59 02/19/20 21:12 Ondansetron HCl (Zofran) 4 mg Q6H PRN IVP Nausea & Vomiting 02/15/20 11:15 03/16/20 11:14 Zinc Sulfate (Zinc Sulfate) 220 mg DAILY ORAL 02/17/20 09:00 05/17/20 08:59 02/20/20 08:29 Assessment/Plan Problems: (1) Low grade fever (2) Syncope (3) COVID-19 (4) HTN (hypertension) (5) Sepsis Assessment/Plan still febrile looks comfortable CXR reviewed: no acute illness no new complains Echo reviewed: EF is 65% BP controlled ] Kavin Escobedo MD Feb 20, 2020 12:08
--- NOTE | 2020-02-20 13:58 | Internal Med Progress Note ---
Subjective Physician Name Mckay Diaz Attending Physician Mckay Diaz MD Current Medications Medications (Trade) Dose Ordered Sig/Jazzmine Route PRN Reason Start Time Stop Time Status Last Admin Dose Admin Acetaminophen (Tylenol) 650 mg Q6H PRN ORAL Mild Pain (Pain Scale 1-3) 02/15/20 11:15 03/16/20 11:14 02/17/20 09:51 Acetaminophen (Tylenol) 650 mg Q6H PRN ORAL Temp >100.5 02/15/20 11:15 03/16/20 11:14 02/19/20 21:12 Acetaminophen/ Codeine Phosphate (Tylenol #3) 1 tab Q6H PRN ORAL Pain Scale (6-10) 02/15/20 11:15 02/22/20 11:14 02/18/20 21:53 Albuterol Sulfate (Proventil MDI) 2 puff Q4H PRN INH Shortness of Breath 02/16/20 11:00 05/16/20 10:59 Ascorbic Acid (Vitamin C) 500 mg TWICE A DAY ORAL 02/16/20 18:00 03/17/20 17:59 02/20/20 08:29 Aspirin (ASA) 81 mg DAILY NG 02/16/20 09:00 04/01/20 08:59 02/20/20 08:29 Atorvastatin Calcium (Lipitor) 10 mg BEDTIME ORAL 02/15/20 21:00 05/15/20 20:59 02/19/20 21:11 Enoxaparin Sodium (Lovenox) 40 mg DAILY SUBQ 02/16/20 09:00 05/16/20 08:59 02/19/20 08:53 Guaifenesin (Robitussin) 100 mg Q6H PRN ORAL For Cough 02/16/20 16:00 05/16/20 15:59 02/19/20 21:12 Ondansetron HCl (Zofran) 4 mg Q6H PRN IVP Nausea & Vomiting 02/15/20 11:15 03/16/20 11:14 Zinc Sulfate (Zinc Sulfate) 220 mg DAILY ORAL 02/17/20 09:00 05/17/20 08:59 02/20/20 08:29 Allergies: Coded Allergies: No Known Allergies (Unverified , 02/15/20) Subjective awake, alert, responsive, denies any chest pain or shortness of breath. Objective Last Vital Signs Date Time Temp Pulse Resp B/P (MAP) Pulse Ox O2 Delivery O2 Flow Rate FiO2 02/20/20 12:00 82 02/20/20 12:00 98.6 20 116/60 (78) 98 02/20/20 09:00 Room Air 02/15/20 10:06 2.0 Intake and Output 02/19/20 02/20/20 19:00 07:00 Intake Total 240 ml Output Total 400 ml 850 ml Balance -400 ml -610 ml Intake Oral 240 ml Output Urine Total 400 ml 850 ml # Voids 2 2 Objective Physical Exam General: No acute distress, awake and alert HEENT: NCAT, sclera anicteric, PERRL, EOMI. Neck: Supple, no significant jugular venous distention, Lungs: Good inspiratory effort, no accessory muscle use, clear to auscultation bilaterally, no Wheeze or Rales. Heart: Regular rate and rhythm, normal S1/S2, no murmurs/gallops Abdomen: soft, nontender, nondistended. Normoactive bowel sounds. / Rectal: Refused and deferred. Extremities: No Cyanosis , clubbing or edema. Neuro: A&O x 3, Able to move all extremities Skin: warm, no rashes or lesions Psych: Normal mood and affect Assessment/Plan Assessment/Plan ASSESSMENT: This is a 64-year-old male with: 1. Syncopal episode. 2. COVID-19 positive. 3. Hypertension. TREATMENT: 1. Syncopal episode. This may be secondary to hypotension upon arrival. The patient's blood pressure has normalized. Cardiology=Dr Polo 2. COVID-19 positive. An infectious disease consultation has been obtained with Dr. Faith. Continue intravenous Decadron. A pulmonary consultation has been obtained with Dr. Kavin Escobedo. 3. Hypertension. The patient is currently hypotensive; hold antihypertensive meds. 4. DVT prophylaxis=Lovenox DC home today Follow up my office in 1 week. Mckay Diaz MD Feb 20, 2020 13:58
[2020-02-20 15:25] VITALS: BP 112/70
--- NOTE | 2020-02-24 08:54 | Discharge Summary ---
Discharge Summary Discharge Summary _ DATE OF ADMISSION: 02/15/2020 DATE OF DISCHARGE: 02/20/2020 DISCHARGED BY: Dr. Diaz REASON FOR ADMISSION: 64 years old male with past medical history of hypertension , apparently passed out in his bathroom. Patient was brought for evaluation to [facility] emergency department and was found to be Covid positive. Chest x-ray revealed no acute cardiopulmonary pathology. Patient subsequently was transferred to [facility] due to insurance reasons. CONSULTANTS: pulmonary Dr. Escobedo ID specialist Dr. Foley [facility] COURSE: Patient admitted to telemetry floor. Patient was kept on isolation . Chest x-ray was clear: no evidence of acute cardiopulmonary pathology. Supplemental oxygen was on board as needed to keep pulse oximetry above 92%. Albuterol MDI provided as needed. Anticoagulation with Lovenox continued. Pulse oximetry was stable on room air, [id number]%. Steroids m antibiotic and antivirals were hold. Patient received vitamin C and zinc. Antitussive provided as needed. Patient developed low garde fevers, but no leukocytosis. Supportive care provided . Fevers resolved. Patient initially was hypotensive. All antihypertensive medication were hold. Patient was provided with IV hydration. Echocardiogram revealed preserved ejection fraction. Carotid duplex was essentially unremarkable. Orthostatic vital signs revealed some evidence of orthostatic changes. Syncopal episode was most probably secondary to hypotension . Antiplatelet therapy with aspirin and statin continued. Blood pressure stabilized. Patient clinically stabilized and was ready for discharge . Patient was instructed on self-isolation. FINAL DIAGNOSES: Syncopal episode, probably due to hypotension COVID-19 infection History of hypertension DISCHARGE MEDICATIONS: See Medication Reconciliation list. DISCHARGE INSTRUCTIONS: Patient was discharged home. Follow-up with a primary care provider. I have been assigned to dictate discharge summary for this account. Idalia Jeong NP Feb 24, 2020 08:51
== END 2020-02-20 17:00 | disposition home or self-care (01) | DRG 177 ==
LOC: 2E 09:36
DX: U07.1 COVID-19 (principal); J12.89 Other viral pneumonia; I10 Essential (primary) hypertension; I95.9 Hypotension, unspecified; E66.9 Obesity, unspecified; Z68.29 Body mass index [BMI] 29.0-29.9, adult
CPT/HCPCS: 36415; 71045; 80048; 80053; 82728; 83615; 83735; 84100; 84484; 85025; 85379; 85651; 86140; 93005; 93306; 93880